=== PATIENT | female | born 1975 | race Caucasian/White ===

== ENCOUNTER 2020-12-06 09:45 | Emergency (ER) | payer OTHER, SELFPAY ==
[2020-12-06 09:57] VITALS: BP 144/77; PULSE 88; RESP 16; TEMP 37; O2SAT 97
--- NOTE | 2020-12-06 10:04 | ED.NAVMDI ---
HPI - Nausea/Vomiting/Diarrhea General Chief complaint: Upper Respiratory Infection Stated complaint: Nausea/Vomiting Time Seen by Provider: 12/06/20 10:05 Source: patient and RN notes reviewed Mode of arrival: ambulatory Limitations: no limitations History of Present Illness HPI Narrative: 45-year-old female with history of COPD presents with multiple concerns. She reports 2-day history of vomiting and diarrhea, with occasional episodes of vomiting and diarrhea. She also reports increased cough, wheezing. Reports she is out of her maintenance inhaler as well as her rescue inhaler. She denies shortness of breath, fever, body aches, chills. Reports sweats. MD elicited complaint: vomiting and other (cough) Related Data Home Medications Medication Instructions Recorded Confirmed albuterol sulfate 2 puff INHALATION Q4-6H PRN 12/06/20 12/06/20 Allergies Allergy/AdvReac Type Severity Reaction Status Date / Time No Known Allergies Allergy Verified 12/06/20 10:04 Review of Systems Review of Systems: CONSTITUTIONAL: Denies malaise, chills, or fever. Reports sweats EYES: Denies visual changes, redness, or discharge. ENT: Reports rhinorrhea, congestion. Denies sinus pain, otalgia or sore throat. CARDIOVASCULAR: Denies chest pain, palpitations, or edema. RESPIRATORY: Reports cough, wheezing. Denies dyspnea. GASTROINTESTINAL: Denies abdominal pain, bloody, or mucous stools. Reports nausea, vomiting, diarrhea MUSCULOSKELETAL: Denies myalgia. All systems reviewed & are unremarkable except as noted in HPI and below PMFSH Comments At time of signature, agree with nursing past medical, surgical, social and family history. There is no relevant family history pertinent to the presenting complaint Exam Narrative: GENERAL: Well-appearing, well-nourished, and in no acute distress. HEAD: Normocephalic EYES: PERRLA, sclera clear ENT: Nares clear. Mucous membranes moist. TM pearly palma with sharp light reflex bilaterally; no tragal tenderness. Oropharynx without erythema or lesions. Tonsils not enlarged and without exudate. NECK: Supple. CHEST: No respiratory distress. Scattered wheeze throughout. Aeration good. No bony deformities, no asymmetry. Speaks in full sentences. HEART: Regular rate and rhythm. SKIN: Warm, dry, no visible rash. NEURO: Alert and oriented x3. PSYCH: Normal mood and affect Course Course Emergency Course: Patient is aware of diagnosis, understands and agrees to treatment plan. Anticipatory guidance given. Patient agrees to follow-up as directed and is aware of reasons to seek care at the emergency department. Portions of this record may have been created with voice recognition software Vital Signs Vital signs: Reviewed. MDM - Nausea/Vomiting/Diarrhea MDM Narrative Medical decision making narrative: Exam findings show no acute concerns or changes; patient is non-toxic appearing and is in no distress. Patient is appropriate for outpatient treatment and follow-up. Critical Care Time Critical Care Time Critical Care Time: No Discharge Plan Discharge Clinical Impression: Acute exacerbation of chronic obstructive pulmonary disease, Medication refill Patient Disposition: Home, Self-Care Condition: Stable Instructions: Chronic Lung Disease and Infection Prevention (ED) Additional Instructions: Take medications as directed Recommend antihistamine such as Benadryl at night time and Zyrtec or Margarette during the day Use inhaler as needed for cough, wheezing, shortness of breath or chest tightness. Also, recommend symptomatic treatment includes: rest, fluids, and increase humidity of the air at home. Recommend Acetaminophen as directed on the bottle to reduce fever, pain, headache. Avoid smoking/second-hand smoke. Please schedule a follow-up visit with your personal physician for further evaluation and treatment within 3-5days. Including recheck and discussion of your blood pressure. If your symptoms pers
[2020-12-06 10:10] VITALS: BP 144/77; PULSE 88; RESP 16; TEMP 37; O2SAT 97
== END 2020-12-06 10:20 | disposition home or self-care (01) ==
PROVIDERS: Emergency Provider Nurse Practitioner; PCP Family Medicine
DX: J44.1 Chronic obstructive pulmonary disease with (acute) exacerbation (principal)
CPT/HCPCS: 99213; G0463

== ENCOUNTER 2021-03-06 16:38 | Emergency (ER) | payer OTHER, SELFPAY ==
[2021-03-06 16:44] VITALS: BP 145/77; PULSE 96; RESP 18; TEMP 37.1; O2SAT 97
--- NOTE | 2021-03-06 16:45 | ED.URI ---
HPI - URI/Sore Throat General Chief Complaint: Upper Respiratory Infection Stated Complaint: sore throat Time Seen by Provider: 03/06/21 16:46 Source: patient and RN notes reviewed History of Present Illness HPI Narrative: Patient is a 46-year-old female presents the urgent care with complaints of a sore throat and left ear pain. Patient states it started 2 to 3 days ago. Patient states she has been treated currently with nystatin for oral thrush. Patient states that it was severe on the roof of her mouth and has started to clear up slowly. Patient states that she takes inhaled corticosteroids for her COPD. Patient has been taking ibuprofen for her symptoms. No other acute complaints or upper respiratory. No acute distress noted. Patient aware of plan of care. Some parts of this dictation were generated by voice recognition software and may contain typographical and/or grammatical inaccuracies. Related Data Home Medications Medication Instructions Recorded Confirmed albuterol sulfate 2 puff INHALATION Q4-6H PRN 12/06/20 03/06/21 bupropion HCl 150 mg PO DAILY 03/06/21 03/06/21 buspirone 15 mg PO TID 03/06/21 03/06/21 nystatin 1,000 unit PO QID 03/06/21 03/06/21 Allergies Allergy/AdvReac Type Severity Reaction Status Date / Time No Known Allergies Allergy Verified 12/06/20 10:04 Review of Systems Review of Systems: CONSTITUTIONAL: Denies fever, chills, or sweats. EYES: Denies visual changes, redness, or discharge. ENT: Reports of left otalgia and sore throat with oral thrush CARDIOVASCULAR: Denies chest pain, palpitations, or edema. RESPIRATORY: Reports of chronic cough without dyspnea GASTROINTESTINAL: Denies abdominal pain, nausea, vomiting, or diarrhea. GENITOURINARY: Denies dysuria or hematuria. SKIN: Denies rash or itching. MUSCULOSKELETAL: Denies back pain, joint pain, or myalgia. NEUROLOGIC: Denies headache, numbness, or weakness. All other systems reviewed are negative, except as documented in HPI. PMFSH Comments At the time of my signature, I reviewed and agree with the nursing past medical, surgical, social, and family history. There is no relevant family history pertinent to the patient complaint. Exam Narrative: GENERAL: This is a well-nourished, well-developed patient, in no apparent distress. HEAD: normocephalic, atraumatic. EYES: PERRL. Sclera clear/white. Vision is grossly intact. EARS: External ears normal, auditory canals clear and without drainage, TMs normal without perforation. Hearing grossly intact. NOSE: External nose normal with no obvious nasal discharge, nares without redness, no rhinorrhea. THROAT: Mucous membranes moist. Moderate erythema noted posterior oropharynx with mild bilateral tonsillar edema without exudate. Notable thrush covering the surface of the tongue NECK: Neck supple, non-tender without lymphadenopathy CARDIOVASCULAR: Regular rate and rhythm without murmurs, gallops, or rubs. RESPIRATORY: Expiratory wheezes throughout SKIN: warm, intact with no suspicious lesions or rash, good texture and turgor. NEURO: awake, alert, and oriented to person, place and time. There were no obvious focal neurologic abnormalities. EXTREMITIES: No clubbing, cyanosis, or edema. Course Course Level of Care: Express Care Visit Vital Signs Vital signs: Vital Signs Temperature 98.8 F 03/06/21 16:44 Pulse Rate 96 03/06/21 16:44 Respiratory Rate 18 03/06/21 16:44 Blood Pressure 145/77 H 03/06/21 16:44 Pulse Oximetry 97 03/06/21 16:44 Temperature 98.8 F 03/06/21 16:44 Pulse Rate 96 03/06/21 16:44 Respiratory Rate 18 03/06/21 16:44 Blood Pressure 145/77 H 03/06/21 16:44 Pulse Oximetry 97 03/06/21 16:44 Reviewed?patient is informed that they may have pre-hypertension or hypertension based on a blood pressure reading in the department. I recommend the patient call the primary care provider listed on their discharge instructions or a physician of their choice this week t
== END 2021-03-06 17:09 | disposition home or self-care (01) ==
PROVIDERS: Emergency Provider Nurse Practitioner Family
DX: H92.02 Otalgia, left ear (principal); J02.9 Acute pharyngitis, unspecified; J44.9 Chronic obstructive pulmonary disease, unspecified; F41.9 Anxiety disorder, unspecified; F32.A Depression, unspecified
CPT/HCPCS: 87081; 99213; G0463

== ENCOUNTER 2021-04-02 15:10 | Emergency (ER) | payer OTHER, SELFPAY ==
[2021-04-02 15:16] VITALS: BP 142/88; PULSE 95; RESP 14; TEMP 36.7; O2SAT 98
--- NOTE | 2021-04-02 15:31 | ED.GENADULT ---
HPI - General Adult General Chief complaint: Extremity Injury, Lower Stated complaint: right knee swollen Time Seen by Provider: 04/02/21 15:31 Source: patient, RN notes reviewed and old records reviewed Mode of arrival: ambulatory History of Present Illness HPI narrative: 46-year-old female presents with complaints of wheezing right wrist pain and right knee pain. Reports taking controller inhaler twice daily as ordered. Has been using albuterol without spacer 1-3 times daily, for increased shortness of breath. Reminded patient she had albuterol inhaler filled last month. Patient reports that she and mom both use albuterol inhaler. Admits she and mom may have both been using same inhaler. Goes outside to smoke. Reports fell on right wrist 9 months ago has taken naproxen off and on. Reports swelling in right wrist and feels tight with increased usage. Fell on right knee 3 months ago. Right knee feels stiff painful with bending and rising to standing position. Denies fever muscle aches or chills. Related Data Home Medications Medication Instructions Recorded Confirmed albuterol 90 mcg INHALATION Q6H PRN 04/02/21 04/02/21 bupropion HCl 150 mg PO QAM 04/02/21 04/02/21 buspirone 15 mg PO BID 04/02/21 04/02/21 fluticasone propion-salmeterol 1 inh INHALATION Q12H 04/02/21 04/02/21 [Wixela Inhub] multivitamin [Daily Vitamin] 1 tablet PO DAILY 04/02/21 04/02/21 quetiapine 25 mg PO HS 04/02/21 04/02/21 Allergies Allergy/AdvReac Type Severity Reaction Status Date / Time No Known Allergies Allergy Verified 04/02/21 15:29 Review of Systems Review of Systems: CONSTITUTIONAL: Denies fever, chills, or sweats. EYES: Denies visual changes, redness, or discharge. ENT: Denies rhinorrhea, congestion, sore throat, or otalgia. CARDIOVASCULAR: Denies chest pain, palpitations, or edema. RESPIRATORY: Occasional cough. Chest tightness at times. Using albuterol inhaler 1-3 times daily. GASTROINTESTINAL: Denies abdominal pain, nausea, vomiting, or diarrhea. GENITOURINARY: Denies dysuria or hematuria. SKIN: Denies rash or itching. MUSCULOSKELETAL: Denies back pain. Right wrist and knee pain, worse with movement.. Increased pain with movement. NEUROLOGIC: Denies headache, numbness, or weakness. PSYCHIATRIC: Denies anxiety or depression. All other systems reviewed are negative, except as documented in HPI. PMFSH Comments At the time of my signature, I reviewed and agree with the nursing past medical, surgical, social, and family history. There is no relevant family history pertinent to the patient complaint. Exam Narrative: GENERAL: This is a well-nourished, well-developed female, in no apparent distress. Uncomfortable due to right knee pain. HEAD: normocephalic, atraumatic. EYES: Sclera clear/white. Vision is grossly intact. EARS: External ears normal, auditory canals clear and without drainage, NOSE: External nose normal with no obvious nasal discharge, nares without redness, no rhinorrhea. THROAT: Mucous membranes moist. NECK: Neck supple, full range of motion CARDIOVASCULAR: Regular rate and rhythm without murmurs, gallops, or rubs. RESPIRATORY: Scattered wheezing anterior and posterior with exhalation. Breath sounds equal bilaterally. Decreased air movement. GASTROINTESTINAL: Abdomen soft, non-tender, nondistended. SKIN: [place] warm, Dry, intact with no suspicious lesions or rash, good texture and turgor. NEURO: awake, alert, and oriented to person, place and time. There were no obvious focal neurologic abnormalities. Gait within normal limits. EXTREMITIES: Bilateral handgrips has normal strength and sensation, normal range of motion. No edema or ecchymosis. 5/5 strength with wrist flexion and extension. Normal sensation with sensitivity to light touch and pain. Right dorsal wrist tenderness with palpation. No open wounds, no skin tenting, no devitalized tissue or atrophy, no trophic changes, no obvious deformity, alignment normal, ne
[2021-04-02 15:34] VITALS: BP 142/88; PULSE 95; RESP 14; TEMP 36.7; O2SAT 98
== END 2021-04-02 16:21 | disposition home or self-care (01) ==
PROVIDERS: Emergency Provider Nurse Practitioner Family
DX: M25.531 Pain in right wrist (principal); M25.561 Pain in right knee; J45.909 Unspecified asthma, uncomplicated; J44.9 Chronic obstructive pulmonary disease, unspecified; F31.9 Bipolar disorder, unspecified
CPT/HCPCS: 99203; G0463

== ENCOUNTER 2021-11-24 10:25 | Emergency (ER) | payer OTHER, SELFPAY ==
[2021-11-24 10:35] VITALS: BP 148/84; PULSE 84; RESP 18; TEMP 36; O2SAT 97
--- NOTE | 2021-11-24 11:20 | ED.GENADULT ---
HPI - General Adult General Chief complaint: Dental/Oral Stated complaint: Sore throat and sore on tongue Time Seen by Provider: 11/24/21 11:20 History of Present Illness HPI narrative: 46-year-old female presented for complaint of lesion to the right side of tongue, swollen lymph nodes, and sore throat for a few days. She endorses pain with swallowing and eating. She reports she had a bump on the tongue and she sterilized toenail clippers and clipped the tip off of the bump. She states it continues to be painful. She has not taken anything for pain. She endorses a history of genital HSV and is concerned for oral HSV. Related Data Home Medications Medication Instructions Recorded Confirmed albuterol sulfate 90 mcg/actuation 2 puff inhalation Q4-6H PRN 12/06/20 03/06/21 aerosol inhaler Shortness Of Breath Or Wheezing bupropion HCl 150 mg 24 hr tablet, 150 mg PO DAILY 03/06/21 03/06/21 extended release buspirone 15 mg tablet 15 mg PO TID 03/06/21 03/06/21 nystatin 100,000 unit/mL oral 1,000 unit PO QID 03/06/21 03/06/21 suspension albuterol 90 mcg/actuation aerosol 90 mcg inhalation Q6H PRN Dyspnea 04/02/21 04/02/21 inhaler bupropion HCl 150 mg 24 hr tablet, 150 mg PO QAM 04/02/21 04/02/21 extended release buspirone 15 mg tablet 15 mg PO BID 04/02/21 04/02/21 fluticasone 250 mcg-salmeterol 50 1 inh inhalation Q12H 04/02/21 04/02/21 mcg/dose blistr powdr for inhalation (Wixela Inhub) multivitamin 1 tablet PO DAILY 04/02/21 04/02/21 quetiapine 25 mg tablet 25 mg PO HS 04/02/21 04/02/21 Allergies Allergy/AdvReac Type Severity Reaction Status Date / Time No Known Allergies Allergy Verified 11/24/21 11:18 Review of Systems Review of Systems: CONSTITUTIONAL: Denies body aches, fever, chills, or sweats. EYES: Denies visual changes, redness, or discharge. ENT: reports tongue and throat pain; Denies rhinorrhea, congestion, or otalgia. CARDIOVASCULAR: Denies chest pain, palpitations, or edema. RESPIRATORY: Denies dyspnea. GASTROINTESTINAL: Denies abdominal pain, nausea, vomiting, or diarrhea. SKIN: Denies rash, itching, or wounds. MUSCULOSKELETAL: Denies back pain, joint pain, or myalgia. NEUROLOGIC: Denies headache Exam Narrative: GENERAL: well-appearing EYES: conjunctivae clear ENT: Mucous membranes moist. Approx 3mm ulcerated lesion to right tongue, no bleeding; TM pearly palma with normal light reflex bilaterally; no tragal tenderness. Oropharynx erythematous without lesions. Tonsils enlarged and without exudate. No drooling, no hoarseness, no trismus, uvula midline. No tripod positioning, hot potato voice, or soft palate swelling. NECK: Supple. bilateral submandibular lymphadenopathy CHEST: Clear to auscultation, breath sounds equal. No respiratory distress, speaks in full sentences. HEART: Regular rate and rhythm. No murmur heard. SKIN: Warm, dry, no rash. NEURO: Alert and oriented x3. Course Course Emergency Course: Patient is aware of diagnosis, understands and agrees to treatment plan. Anticipatory guidance given. Patient agrees to follow-up as directed and is aware of reasons to seek care at the emergency department. Portions of this record may have been created with voice recognition software Level of Care: Express Care Visit Vital Signs Vital signs: Vital Signs Temperature 96.8 F L 11/24/21 10:35 Pulse Rate 84 11/24/21 10:35 Respiratory Rate 18 11/24/21 10:35 Blood Pressure 148/84 H 11/24/21 10:35 Pulse Oximetry 97 11/24/21 10:35 Oxygen Delivery Room Air 11/24/21 10:35 Temperature 96.8 F L 11/24/21 10:35 Pulse Rate 84 11/24/21 10:35 Respiratory Rate 18 11/24/21 10:35 Blood Pressure 148/84 H 11/24/21 10:35 Pulse Oximetry 97 11/24/21 10:35 Oxygen Delivery Room Air 11/24/21 10:35 Medical Decision Making MDM Narrative Medical decision making narrative: Strep negative. Given hx HSV, will treat for oral outbreak. Reviewed with nova
== END 2021-11-24 12:11 | disposition home or self-care (01) ==
PROVIDERS: Emergency Provider Nurse Practitioner Family; PCP Internal Medicine
DX: K14.9 Disease of tongue, unspecified (principal)
CPT/HCPCS: 87081; 87880; 99213; G0463

== ENCOUNTER 2022-01-10 18:12 | Emergency (ER) | payer OTHER, SELFPAY ==
--- NOTE | 2022-01-10 18:13 | ED.URI ---
HPI - URI/Sore Throat General Chief Complaint: Upper Respiratory Infection Stated Complaint: cough Time Seen by Provider: 01/10/22 18:13 Source: patient and RN notes reviewed History of Present Illness HPI Narrative: patient is a 46-year-old female who presents to urgent care with complaints of cough for 2 days. Patient was in the emergency room on the 02 of January and given albuterol treatments for exacerbation of COPD and asthma. Patient states that she was not placed on steroids at that time. Patient has not followed up with her doctor. Patient is also requesting refills of her inhalers. No other acute complaints. Denies any fevers or chest pain. No acute distress noted. Patient aware of the plan care. Some parts of this dictation were generated by voice recognition software and may contain typographical and/or grammatical inaccuracies. Related Data Home Medications Medication Instructions Recorded Confirmed bupropion HCl 150 mg 24 hr tablet, 150 mg PO DAILY 03/06/21 01/10/22 extended release buspirone 15 mg tablet 15 mg PO TID 03/06/21 01/10/22 albuterol 90 mcg/actuation aerosol 90 mcg inhalation Q6H PRN Dyspnea 04/02/21 01/10/22 inhaler multivitamin 1 tablet PO DAILY 04/02/21 01/10/22 quetiapine 25 mg tablet 25 mg PO HS 04/02/21 01/10/22 Allergies Allergy/AdvReac Type Severity Reaction Status Date / Time No Known Allergies Allergy Verified 01/10/22 18:20 Review of Systems Review of Systems: CONSTITUTIONAL: Denies fever, chills, or sweats. EYES: Denies visual changes, redness, or discharge. ENT: Denies rhinorrhea, congestion, sore throat, or otalgia. CARDIOVASCULAR: Denies chest pain, palpitations, or edema. RESPIRATORY: Reports persistent cough dyspnea GASTROINTESTINAL: Denies abdominal pain, nausea, vomiting, or diarrhea. GENITOURINARY: Denies dysuria or hematuria. SKIN: Denies rash or itching. MUSCULOSKELETAL: Denies back pain, joint pain, or myalgia. NEUROLOGIC: Denies headache, numbness, or weakness. All other systems reviewed are negative, except as documented in HPI. PMFSH Comments At the time of my signature, I reviewed and agree with the nursing past medical, surgical, social, and family history. There is no relevant family history pertinent to the patient complaint. Exam Narrative: GENERAL: This is a well-nourished, well-developed patient, in no apparent distress. HEAD: normocephalic, atraumatic. EYES: PERRL. Sclera clear/white. Vision is grossly intact. EARS: External ears normal, auditory canals clear and without drainage, TMs normal without perforation. Hearing grossly intact. NOSE: External nose normal with no obvious nasal discharge, nares without redness, no rhinorrhea. THROAT: Mucous membranes moist, posterior pharynx clear. moderate postnasal drainage NECK: Neck supple, non-tender without lymphadenopathy CARDIOVASCULAR: Regular rate and rhythm without murmurs, gallops, or rubs. RESPIRATORY: inspiratory expiratory wheezes throughout SKIN: warm, intact with no suspicious lesions or rash, good texture and turgor. NEURO: awake, alert, and oriented to person, place and time. There were no obvious focal neurologic abnormalities. EXTREMITIES: No clubbing, cyanosis, or edema. Course Course Level of Care: Express Care Visit Vital Signs Vital signs: Vital Signs Temperature 97.5 F L 01/10/22 18:16 Pulse Rate 99 01/10/22 18:16 Respiratory Rate 20 01/10/22 18:16 Blood Pressure 113/79 01/10/22 18:16 Pulse Oximetry 98 01/10/22 18:16 Oxygen Delivery Room Air 01/10/22 18:16 Temperature 97.5 F L 01/10/22 18:22 Pulse Rate 99 01/10/22 18:22 Respiratory Rate 20 01/10/22 18:22 Blood Pressure 113/79 01/10/22 18:22 Pulse Oximetry 98 01/10/22 18:22 Oxygen Delivery Room Air 01/10/22 18:22 reviewed MDM - URI/Sore Throat MDM Narrative Medical decision making narrative: advised patient to complete the oral steroid regimen as prescribed.
[2022-01-10 18:16] VITALS: BP 113/79; PULSE 99; RESP 20; TEMP 36.4; O2SAT 98
[2022-01-10 18:22] VITALS: BP 113/79; PULSE 99; RESP 20; TEMP 36.4; O2SAT 98
== END 2022-01-10 18:34 | disposition home or self-care (01) ==
PROVIDERS: Emergency Provider Nurse Practitioner Family; PCP Internal Medicine
DX: J40 Bronchitis, not specified as acute or chronic (principal); J44.9 Chronic obstructive pulmonary disease, unspecified; F31.9 Bipolar disorder, unspecified
CPT/HCPCS: 99213; G0463

== ENCOUNTER 2022-01-19 09:59 | Emergency (ER) | payer OTHER, SELFPAY ==
--- NOTE | 2022-01-19 10:01 | ED.URI ---
HPI - URI/Sore Throat General Chief Complaint: Upper Respiratory Infection Stated Complaint: respiratory and ears Time Seen by Provider: 01/19/22 10:16 Source: patient and RN notes reviewed Mode of arrival: ambulatory Limitations: no limitations History of Present Illness HPI Narrative: 46-year-old female presents concern for worsening cough, yellow productive phlegm, left ear pain. She reports she was seen a week ago and she took steroids and has been using ear drops. Reports she has been using her inhaler and nebulizer at home. She reports malaise, chills, aches. She denies taking any [id number] cold medications. MD elicited complaint: cough and other (Ear pain) Related Data Home Medications Medication Instructions Recorded Confirmed bupropion HCl 150 mg 24 hr tablet, 150 mg PO DAILY 03/06/21 01/10/22 extended release buspirone 15 mg tablet 15 mg PO TID 03/06/21 01/10/22 albuterol 90 mcg/actuation aerosol 90 mcg inhalation Q6H PRN Dyspnea 04/02/21 01/10/22 inhaler multivitamin 1 tablet PO DAILY 04/02/21 01/10/22 quetiapine 25 mg tablet 25 mg PO HS 04/02/21 01/10/22 Allergies Allergy/AdvReac Type Severity Reaction Status Date / Time No Known Allergies Allergy Verified 01/10/22 18:20 Review of Systems Review of Systems: CONSTITUTIONAL: Reports malaise, chills EYES: Denies visual changes, redness, or discharge. ENT: Reports rhinorrhea, congestion, left otalgia CARDIOVASCULAR: Denies chest pain, palpitations, or edema. RESPIRATORY: Reports persistent productive cough, exertional dyspnea. GASTROINTESTINAL: Denies abdominal pain, nausea, vomiting, diarrhea SKIN: Denies rash or itching. MUSCULOSKELETAL: Reports myalgia. NEUROLOGIC: Denies headache. All systems reviewed & are unremarkable except as noted in HPI and below PMFSH Comments At time of signature, agree with nursing past medical, surgical, social and family history. There is no relevant family history pertinent to the presenting complaint Exam Narrative: GENERAL: Nontoxic appearing. And in no acute distress. HEAD: Normocephalic EYES: PERRLA, conjunctivae clear ENT: Nares clear, turbinates edematous and erythematous, clear discharge. Mucous membranes moist. Right TM pearly palma with dull light reflex, left TM erythematous and bulging; no tragal tenderness. Oropharynx not erythematous without lesions. Tonsils not enlarged and without exudate, no drooling, no hoarseness, no trismus, uvula midline. NECK: Supple. No lymphadenopathy CHEST: Scattered inspiratory and expiratory wheeze, scattered rhonchi, breath sounds equal. No rales, or stridor. No respiratory distress, speaks in full sentences. HEART: Regular rate and rhythm. No murmur heard. SKIN: Warm, dry, no rash. NEURO: Alert and oriented x3. PSYCH: Normal mood and affect Course Course Emergency Course: Offered patient chest x-ray, she refused Patient is aware of diagnosis, understands and agrees to treatment plan. Anticipatory guidance given. Patient agrees to follow-up as directed and is aware of reasons to seek care at the emergency department. Portions of this record may have been created with voice recognition software Level of Care: Express Care Visit Vital Signs Vital signs: Vital Signs Temperature 97.4 F L 01/19/22 10:04 Pulse Rate 110 H 01/19/22 10:04 Respiratory Rate 20 01/19/22 10:04 Blood Pressure 131/84 01/19/22 10:04 Pulse Oximetry 92 01/19/22 10:04 Oxygen Delivery Room Air 01/19/22 10:04 Temperature 97.4 F L 01/19/22 10:04 Pulse Rate 110 H 01/19/22 10:04 Respiratory Rate 20 01/19/22 10:04 Blood Pressure 131/84 01/19/22 10:04 Pulse Oximetry 92 01/19/22 10:04 Oxygen Delivery Room Air 01/19/22 10:04 Reviewed. MDM - URI/Sore Throat MDM Narrative Medical decision making narrative: Differential diagnosis considered: Clement virus, strep pharyngitis, allergic rhinitis, upper respiratory tract infection, sinusitis, rhinosinusiti
[2022-01-19 10:04] VITALS: BP 131/84; PULSE 110; RESP 20; TEMP 36.3; O2SAT 92
== END 2022-01-19 10:36 | disposition home or self-care (01) ==
PROVIDERS: Emergency Provider Nurse Practitioner; PCP Internal Medicine
DX: H66.92 Otitis media, unspecified, left ear (principal); J06.9 Acute upper respiratory infection, unspecified; J44.9 Chronic obstructive pulmonary disease, unspecified
CPT/HCPCS: 99213; G0463

== ENCOUNTER 2022-01-30 17:52 | Emergency (ER) | payer OTHER, SELFPAY ==
--- NOTE | 2022-01-30 17:55 | ED.FEMALEGU ---
HPI - Female Genitourinary General Chief complaint: Urogenital-Female Stated complaint: Trichomoniasis Time Seen by Provider: 01/30/22 18:00 Source: patient, RN notes reviewed and old records reviewed Mode of arrival: ambulatory Limitations: no limitations History of Present Illness HPI Narrative: 46-year-old female presents to the [facility] with complaints vaginal discharge, itching and irritation. Reports that feels similar to when she had Trichomonas back and spring. Denies fevers, chest pain, abdominal pain. No CVA tenderness. Related Data Home Medications Medication Instructions Recorded Confirmed bupropion HCl 150 mg 24 hr tablet, 150 mg PO DAILY 03/06/21 01/30/22 extended release buspirone 15 mg tablet 15 mg PO TID 03/06/21 01/30/22 Allergies Allergy/AdvReac Type Severity Reaction Status Date / Time No Known Allergies Allergy Verified 01/30/22 18:15 Review of Systems Review of Systems: All systems reviewed & are unremarkable except as noted in HPI and below Constitutional: Constitutional: Reports no additional constitutional complaints Eyes: Eyes: Reports no additional eye complaints ENT: Reports system reviewed and no additional complaints, except as documented Cardiovascular: Cardiovascular: Reports no additional cardiovascular complaints, Denies chest pain and Denies dyspnea Respiratory: Respiratory: Reports no additional respiratory complaints, Denies chest congestion, Denies cough and Denies dyspnea Gastrointestinal: Gastrointestinal: Reports no additional gastrointestinal complaints, Denies abdominal pain, Denies nausea and Denies vomiting Genitourinary: Genitourinary: Reports as per HPI and Reports vaginal discharge Musculoskeletal: Musculoskeletal: Reports no additional musculoskeletal complaints Integumentary/Breasts: Skin/Breast: Reports system reviewed and no additional complaints, except as docu Neurologic: Reports system reviewed and no additional complaints, except as documented Psychiatric: Psychiatric: Reports no additional psychiatric complaints Allergic/Immunologic: Allergic/Immunologic: Reports no additional allergic/immunologic complaints PMFSH Comments At the time of my signature, I reviewed and agree with the nursing past medical, surgical, social, and family history. There is no relevant family history pertinent to the patient complaint. Exam Const: General: cooperative, healthy appearing, comfortable, no acute distress, well developed, alert and well nourished Nutritional Appearance: well nourished and obese Orientation/consciousness: patient oriented x3 Limitations: no limitations HENMT: Head: normal to inspection Ears: hearing grossly normal bilaterally and external ears normal Face/Nose/Sinus: Normal external nose present, Normal nares present, Normal nasal mucous membranes and turbinates present and normal facial exam Face and sinus: normal facial exam Mouth: Yes Normal oral and palatal mucosa present, Yes lip normal and Yes moist mucous membranes Throat: posterior oropharynx normal and uvula midline Eyes: General: appearance normal, both eyes and all related structures Alignment and Position: alignment normal Periorbital: periorbital findings normal Conjunctivae: conjunctivae normal Pupils: Equal, round and reactive pupils present EOM: EOMs intact bilaterally Neck: Neck: normal visual inspection, full ROM, no lymphadenopathy and no meningeal signs Chest: Chest palpation & inspection: normal inspection of the chest Resp: Effort & Inspection: normal respiratory effort and able to speak in complete sentences Auscultation: clear to auscultation bilaterally, no crackles, no rales, no rhonchi and no wheezes Cardio: Rate: regular rate Rhythm: regular rhythm : General: Yes no CVA tenderness External Female Exam: normal external appearance Speculum Exam - Vagina: abnormal vaginal discharge white, malodorous and yellow Speculum Exam - Cervix: normal appearan
[2022-01-30 18:18] VITALS: BP 140/93; PULSE 95; RESP 16; TEMP 36.8; O2SAT 98
--- NOTE | 2022-01-30 18:22 | PC.NURSE ---
Assisted GLOVE CUFFER with pelvic exam. Swabs collected.
== END 2022-01-30 18:36 | disposition home or self-care (01) ==
PROVIDERS: Emergency Provider Nurse Practitioner; PCP Internal Medicine
DX: B37.31 Acute candidiasis of vulva and vagina (principal); Z20.2 Contact with and (suspected) exposure to infections with a predominantly sexual mode of transmission
CPT/HCPCS: 87070; 87491; 87591; 87661; 99214; G0463

== ENCOUNTER 2022-08-05 10:58 | Emergency (ER) | payer OTHER, SELFPAY ==
--- NOTE | ~2022-08-05 | XR_ITS ---
EXAMINATION: XR abdomen obstructive series DATE: 08/05/2022 11:38 INDICATION: Generalized abdominal pain, constipation TECHNIQUE: Upright and supine views of the abdomen were obtained. COMPARISON: None. FINDINGS: A moderate volume of colonic stool is present. There are no dilated loops of bowel. Mild os teitis pubis is noted. The visualized lung bases are clear. IMPRESSION: 1. Constipation. Reviewed, dictated and finalized at location [] IMPRESSION: 1. Constipation.
[2022-08-05 11:06] VITALS: BP 140/83; PULSE 83; RESP 18; TEMP 36.8; O2SAT 100
--- NOTE | 2022-08-05 11:14 | ED.GENADULT ---
HPI - General Adult General Chief complaint: Abdominal Pain Stated complaint: stomach issues Time Seen by Provider: 08/05/22 11:14 Source: patient Mode of arrival: ambulatory Limitations: no limitations History of Present Illness HPI narrative: 47-year-old female presents with complaint of right sided abdominal pain for the past 1 year. Reports that pain is a ?burning? pain. Reports burning sensation has increased over the last 3 weeks. Feels a pressure in her abdomen when she bends over. Also reports intermittent constipation. No urinary symptoms. Denies nausea vomiting diarrhea. No blood in stool. Saw a promotion specialist for this complaint and states she had an ultrasound, may be a CT scan done. Has not called promotion specialist or her primary care physician for a appointment since pain worsened. Patient is well-appearing today. Patient reports history of bipolar disease. States she recently stopped her medications and is using marijuana to treat her symptoms. So requesting albuterol refill. All systems reviewed and negative except as noted above. Related Data Home Medications Medication Instructions Recorded Confirmed albuterol sulfate 90 mcg/actuation See Rx Instructions .Route .COMPLEX 08/05/22 08/05/22 aerosol inhaler fluticasone 500 mcg-salmeterol 50 See Rx Instructions .Route .COMPLEX 08/05/22 08/05/22 mcg/dose blistr powdr for inhalation (Advair Diskus) Allergies Allergy/AdvReac Type Severity Reaction Status Date / Time No Known Allergies Allergy Verified 08/05/22 11:06 Review of Systems Review of Systems: CONSTITUTIONAL: Denies fever, chills, or sweats. EYES: Denies visual changes, redness, or discharge. ENT: Denies rhinorrhea, congestion, sore throat, or otalgia. CARDIOVASCULAR: Denies chest pain, palpitations, or edema. RESPIRATORY: Denies cough or dyspnea. GASTROINTESTINAL: Reports right-sided burning abdominal pain. Denies nausea, vomiting, or diarrhea. GENITOURINARY: Denies dysuria or hematuria. SKIN: Denies rash or itching. MUSCULOSKELETAL: Denies back pain, joint pain, or myalgia. NEUROLOGIC: Denies headache, numbness, or weakness. PSYCHIATRIC: Denies anxiety or depression. All other systems reviewed are negative, except as documented in HPI. [facility] Comments At time of signature, agree with nursing past medical, surgical, social and family history. There is no relevant family history pertinent to the presenting complaint. Exam Narrative: GENERAL: This is a well-nourished, well-developed patient, in no apparent distress. HEAD: normocephalic, atraumatic. EYES: PERRL. Sclera clear/white. Vision is grossly intact. EARS: External ears normal NOSE: External nose normal NECK: Neck supple, non-tender without lymphadenopathy, masses or thyromegaly. CARDIOVASCULAR: Regular rate and rhythm without murmurs, gallops, or rubs. RESPIRATORY: Clear to auscultation. Breath sounds equal bilaterally. No wheezes, rales, or rhonchi. GASTROINTESTINAL: Abdomen soft, non-tender, nondistended. Bowel sounds are active. No hepato-splenomegaly, or palpable masses. No guarding. SKIN: warm, Dry, intact with no suspicious lesions or rash, good texture and turgor. NEURO: awake, alert, and oriented to person, place and time. There were no obvious focal neurologic abnormalities. EXTREMITIES: No joint tenderness, effusion, or edema noted. Course Course Level of Care: Express Care Visit Vital Signs Vital signs: Vital Signs Temperature 36.8 C 08/05/22 11:06 Pulse Rate 83 08/05/22 11:06 Respiratory Rate 18 08/05/22 11:06 Blood Pressure 140/83 08/05/22 11:06 Pulse Oximetry 100 08/05/22 11:06 Oxygen Delivery Room Air 08/05/22 11:06 Temperature 36.8 C 08/05/22 11:06 Pulse Rate 83 08/05/22 11:06 Respiratory Rate 18 08/05/22 11:06 Blood Pressure 140/83 08/05/22 11:06 Pulse Oximetry 100 08/05/22 11:06 Oxygen Delivery Room Air 08/05/22 11:06 Reviewed
[2022-08-05 11:17] VITALS: BP 140/83; PULSE 83; RESP 18; TEMP 36.8; O2SAT 100
== END 2022-08-05 12:00 | disposition home or self-care (01) ==
PROVIDERS: Emergency Provider Nurse Practitioner Family; PCP Internal Medicine
DX: K59.00 Constipation, unspecified (principal); Z76.0 Encounter for issue of repeat prescription; J44.9 Chronic obstructive pulmonary disease, unspecified
CPT/HCPCS: 74019; 99213; G0463

== ENCOUNTER 2023-10-01 10:12 | Emergency (ER) | payer OTHER, SELFPAY ==
[2023-10-01 10:17] VITALS: BP 157/93; PULSE 83; RESP 24; TEMP 36.6; O2SAT 97
--- NOTE | 2023-10-01 10:42 | ED.URI ---
HPI - URI/Sore Throat General Chief Complaint: Upper Respiratory Infection Stated Complaint: has COPD/cough/throat Time Seen by Provider: 10/01/23 10:43 Source: patient and RN notes reviewed Mode of arrival: ambulatory Limitations: no limitations History of Present Illness HPI Narrative: 48-year-old female presents with concern of for cough, shortness of breath 1.5 weeks ago. She reports she is using her albuterol inhaler and used a nebulizer without relief. She reports Ventolin works better for her but she can not afford the prescription. She denies fever, aches, chills, sweats MD elicited complaint: cough Related Data Home Medications Medication Instructions Recorded Confirmed fluticasone 500 mcg-salmeterol 50 See Rx Instructions .Route .COMPLEX 08/05/22 10/01/23 mcg/dose blistr powdr for inhalation (Advair Diskus) cetirizine 10 mg tablet (All Day mg 10/01/23 Allergy (cetirizine)) fluticasone propionate 50 intranasal 10/01/23 10/01/23 mcg/actuation nasal spray,suspension Allergies Allergy/AdvReac Type Severity Reaction Status Date / Time No Known Allergies Allergy Verified 10/01/23 10:16 Review of Systems Review of Systems: CONSTITUTIONAL: Reports malaise. Denies chills, sweats, or fever. EYES: Denies visual changes, redness, or discharge. ENT: Reports rhinorrhea, congestion, and sore throat. CARDIOVASCULAR: Denies chest pain, palpitations, or edema. RESPIRATORY: Reports cough, dyspnea. GASTROINTESTINAL: Denies abdominal pain, nausea, vomiting, diarrhea SKIN: Denies rash or itching. MUSCULOSKELETAL: Denies myalgia. NEUROLOGIC: Denies headache. All systems reviewed & are unremarkable except as noted in HPI and below PMFSH Comments At time of signature, agree with nursing past medical, surgical, social and family history. There is no relevant family history pertinent to the presenting complaint Exam Narrative: GENERAL: Well-appearing, well-nourished, and in no acute distress. HEAD: Normocephalic EYES: PERRLA, conjunctivae clear ENT: Nares clear. Mucous membranes moist. TM pearly palma with sharp light reflex bilaterally; no tragal tenderness. Oropharynx erythematous without lesions. Tonsils not enlarged and without exudate, no drooling, no hoarseness, no trismus, uvula midline. NECK: Supple. No lymphadenopathy CHEST: Inspiratory and expiratory wheeze throughout, scattered rhonchi. No rales, or stridor. No respiratory distress, speaks in full sentences. HEART: Regular rate and rhythm. No murmur heard. SKIN: Warm, dry, no rash. NEURO: Alert and oriented x3. PSYCH: Normal mood and affect Course Course Emergency Course: Patient is aware of diagnosis, understands and agrees to treatment plan. Anticipatory guidance given. Patient agrees to follow-up as directed and is aware of reasons to seek care at the emergency department. Portions of this record may have been created with voice recognition software Level of Care: Express Care Visit Reevaluation(s) Reevaluation #1: Slight improvement in aeration upon re-evaluation, some rhonchi noted Date: 10/01/23 Time: 11:26 Vital Signs Vital signs: Vital Signs Temperature 97.9 F 10/01/23 10:17 Pulse Rate 83 10/01/23 10:17 Respiratory Rate 24 H 10/01/23 10:17 Blood Pressure 157/93 H 10/01/23 10:17 Pulse Oximetry 97 10/01/23 10:17 Oxygen Delivery Room Air 10/01/23 10:17 Temperature 97.9 F 10/01/23 10:17 Pulse Rate 83 10/01/23 10:17 Respiratory Rate 24 H 10/01/23 10:17 Blood Pressure 157/93 H 10/01/23 10:17 Pulse Oximetry 97 10/01/23 10:17 Oxygen Delivery Room Air 10/01/23 10:17 Reviewed. MDM - URI/Sore Throat MDM Narrative Medical decision making narrative: Differential diagnosis considered: Clement virus, strep pharyngitis, allergic rhinitis, upper respiratory tract infection, sinusitis, rhinosinusitis, nasopharyngitis. viral pharyngitis, otitis media, otitis externa, pneumonia, bronchitis,
[2023-10-01 10:46] LABS: EDSTREPNEGPOS1 Negative
[2023-10-01] MEDS: IPRATROPIUM 0.5 MG/ALBUTEROL SULFATE 2.5 MG AMPUL.NEB 3 ML INHALATION (10:54)
[2023-10-01] MEDS: methylPREDNISolone SOD SUCC 125 MG VIAL IM (10:54)
[2023-10-01 11:25] VITALS: PULSE 80; RESP 20; O2SAT 97
== END 2023-10-01 11:30 | disposition home or self-care (01) ==
PROVIDERS: Emergency Provider Nurse Practitioner; PCP Family Medicine
DX: J44.1 Chronic obstructive pulmonary disease with (acute) exacerbation (principal); Z20.822 Contact with and (suspected) exposure to COVID-19
CPT/HCPCS: 87081; 87426; 87880; 96372; 99213; G0463; J2919

== ENCOUNTER 2024-01-13 17:18 | Emergency (ER) | payer OTHER, SELFPAY ==
[2024-01-13 17:26] VITALS: BP 142/95; PULSE 92; RESP 20; TEMP 36.8; O2SAT 98
[2024-01-13 18:08] LABS: EDSTREPNEGPOS1 Negative (Negative)
--- NOTE | 2024-01-13 18:20 | ED_ITS ---
HPI - URI/Sore Throat General Chief Complaint: Upper Respiratory Infection Stated Complaint: throat Time Seen by Provider: 01/13/24 18:10 Source: patient Mode of arrival: ambulatory Limitations: no limitations History of Present Illness HPI Narrative: 48 year old female presents to [facility] care with complaints of 4-5 day history of sore throat with right lymph node painful and swollen with pain with swallowing voiced.Patient reports that she has some cough noted, does have history of COPD and asthma and is out of her inhalers of Advair and Albuterol. Patient reports that she has noticed hoarseness and voice changes and has had some headache discomfort. Patient states that she has taken Tylenol for her discomfort. Patient continues to smoke cigarettes daily MD elicited complaint: cough, sore throat and other (tobacco abuse) Pertinent past history: COPD and asthma Onset (ago): day(s) (4-5 days) Severity: moderate Able to tolerate fluids by mouth: Yes Treatments prior to arrival: acetaminophen Related Data Home Medications Medication Instructions Recorded Confirmed fluticasone 500 mcg-salmeterol 50 See Rx Instructions .Route .COMPLEX 08/05/22 01/13/24 mcg/dose blistr powdr for inhalation (Advair Diskus) Allergies Allergy/AdvReac Type Severity Reaction Status Date / Time No Known Allergies Allergy Verified 10/01/23 10:16 Review of Systems Review of Systems: CONSTITUTIONAL:Reports malaise, no chills, sweats, or fever. EYES: Denies visual changes, redness, or discharge. ENT: Reports rhinorrhea, congestion, no sinus pain, no otalgia and positive for sore throat. CARDIOVASCULAR: Denies chest pain, palpitations, or edema. RESPIRATORY: Reports cough.? Denies acute dyspnea. GASTROINTESTINAL: Denies abdominal pain, nausea, vomiting, diarrhea SKIN: Denies rash or itching. MUSCULOSKELETAL: Denies myalgia. NEUROLOGIC:Reports some headache. All systems reviewed & are unremarkable except as noted in HPI and below PMFSH Past Medical History Medical History (Updated 01/14/24 @ 16:30 by Bianca Du NP) Asthma Bipolar disorder COPD (chronic obstructive pulmonary disease) Fracture of right wrist Genital herpes Surgical History Surgical History Previous section Social History Social History (Updated 01/14/24 @ 16:28 by Bianca Du NP) Smoking packs per day: 0.5 Smoking cigarettes per day: 10.0 Years smoked: 25 Smoking pack-years: 12.50 Smoking status: Current every day smoker Tobacco type: cigarettes Alcohol intake: unknown Substance use: unknown Gender identity (if verbalized by the patient): Female Comments At time of signature, agree with nursing past medical, surgical, social and family history. There is no relevant family history pertinent to the presenting complaint Exam Narrative: GENERAL: Well-appearing, well-nourished, and in no acute distress. HEAD: Normocephalic EYES: PERRLA, conjunctivae clear ENT: Nares clear, turbinates edematous and erythematous, clear discharge. Mucous membranes moist. TM pearly palma with dull light reflex bilaterally; no tragal tenderness. Oropharynx erythematous without lesions. Tonsils red and enlarged and without exudate, no drooling, positive for hoarseness, no trismus, uvula midline,post nasal drainage. NECK: Supple.right lymphadenopathy CHEST: scattered wheezes on auscultation, breath sounds equal. + wheezing, no rhonchi, rales, or stridor. No respiratory distress, speaks in full sentences.cough SAO2 98% on room air HEART: Regular rate and rhythm. No murmur heard. SKIN: Warm, dry, no rash. NEURO: Alert and oriented x3. PSYCH: Normal mood and affect Course Course Emergency Course: Patient is aware of diagnosis, understands and agrees to treatment plan.? Anticipatory guidance given.? Patient agrees to follow-up as directed and is aware of reasons to seek care at the emergency department. Portions of this record may have been created with voice recognition software Level of Care: Express Care Visit Vital Signs Vital signs: Vital Signs Temperature 36.8 C 01/13/24 17: Pulse Rate 92 01/13/24 17: Respiratory Rate 20 01/13/24 17:26 Blood Pressure 142/95 H 01/13/24 17:26 Pulse Oximetry 98 01/13/24 17:26 Oxygen Delivery Room Air 01/13/24 17:26 Temperature 36.8 C 01/13/24 17: Pulse Rate 92 01/13/24 17:26 Respiratory Rate 20 01/13/24 17:26 Blood Pressure 142/95 H 01/13/24 17:26 Pulse Oximetry 98 01/13/24 17:26 Oxygen Delivery Room Air 01/13/24 17:26 Reviewed MDM - URI/Sore Throat MDM Narrative Medical decision making narrative: Differential diagnosis considered: Clement virus, strep pharyngitis, allergic rhinitis, upper respiratory tract infection, sinusitis, rhinosinusitis, nasopharyngitis. viral pharyngitis, otitis media, otitis externa, pneumonia, bronchitis, viral cough syndrome, viral syndrome, and influenza.? Exam findings show no acute concerns or changes; patient is non-toxic appearing and is in no distress.? Patient is appropriate for outpatient treatment and follow-up. Differential Diagnosis Differential diagnosis: Likely upper respiratory infection, viral infection, bronchitis, pharyngitis and other (strep pharyngitis, tonsillitis) Medical Records Attestation: I reviewed the patient's medical records. Lab Data Attestation: I reviewed the patient's lab results. Lab results narrative: strep screen negative, culture sent Labs: Lab Results 01/13/24 Range/Units 17:36 POC Grp A Strep Screen Negative (Negative) Critical Care Time Critical Care Time Critical Care Time: No Discharge Plan Discharge Clinical Impression: Bronchitis, Tonsillitis Patient Disposition: Home, Self-Care Condition: Stable Instructions: Antibiotic Form, Acute Bronchitis (ED), Tonsillitis (ED) Additional Instructions: Increase fluids especially juices and water [id number] cough and cold medicine of your choice for your symptoms Tylenol or ibuprofen for any fever pain Continue your inhaler/nebulizer as directed Steroids as directed--take with food heat to the face 20-30 minutes 4-6 times a day for pain Salt water gargles, throat lozenges or throat sprays as desired Antibiotic as directed--finished the medication If your symptoms persist, change or worsen significantly before you can contact your personal physician then please, without delay, go to the emergency department for further evaluation. Follow-up with PCP in 7-10 days or sooner if needed Follow up with PCP soon in regards to your blood pressure which is elevated above threshold for referral. Blood pressure above 120/80 may indicate pre- hypertension. 142/95 Prescriptions: New albuterol sulfate 90 mcg/actuation HFA aerosol inhaler 2 puff inhalation QID PRN (Reason: shortness of breath or wheezing) Qty: 6.7 0RF Rx Instructions: blue one fluticasone propion-salmeterol [Advair Diskus] 500-50 mcg/dose blister with device 1 inh inhalation Q12H Qty: 60 0RF ibuprofen 600 mg tablet 600 mg PO QID PRN (Reason: fever or pain) Qty: 30 1RF amoxicillin-pot clavulanate 875-125 mg tablet 1 tablet PO Q12H Qty: 20 0RF prednisone 20 mg tablet 20 mg PO BID Qty: 10 0RF No Action fluticasone propion-salmeterol [Advair Diskus] 500-50 mcg/dose blister with device See Rx Instructions .ROUTE .COMPLEX Rx Instructions: as prescribed albuterol sulfate 90 mcg/actuation HFA aerosol inhaler 2 puff inhalation QID PRN (Reason: shortness of breath or wheezing) Qty: 8.5 0RF albuterol sulfate 2.5 mg /3 mL (0.083 %) solution for nebulization 2.5 mg inhalation Q4H PRN (Reason: shortness of breath or wheezing) Qty: 75 0RF Follow-up/Referrals: Deonte,Leonel Chiu MD [Primary Care Provider] - Time of Disposition: 18:31 Quality Jesica Coma Scale Eyes: Open Verbal: Oriented and Alert Motor: Follows Commands Jesica Coma Total Score: 15
== END 2024-01-13 18:48 | disposition home or self-care (01) ==
PROVIDERS: Emergency Provider Registered Nurse; PCP Family Medicine
DX: J40 Bronchitis, not specified as acute or chronic (principal); J03.90 Acute tonsillitis, unspecified; J44.9 Chronic obstructive pulmonary disease, unspecified; F17.210 Nicotine dependence, cigarettes, uncomplicated
CPT/HCPCS: 87081; 87880; 99213; G0463

== ENCOUNTER 2024-04-17 12:15 | Emergency (ER) | payer OTHER, SELFPAY ==
--- NOTE | ~2024-04-17 | XR_ITS ---
Clinical Indication: Cough PA and lateral views of the chest: Comparison: None Findings: The lungs are clear, without evidence of focal consolidation or pleural effusion. Cardiome diastinal silhouette is within normal limits. Bones and soft tissues are unremarkable. Impression: Normal chest. Reviewed, dictated and finalized at location . Impression: Normal chest.
[2024-04-17 12:20] VITALS: BP 145/93; PULSE 103; RESP 24; TEMP 36.6; O2SAT 95
--- NOTE | 2024-04-17 12:28 | ED_ITS ---
HPI - URI/Sore Throat General Chief Complaint: Upper Respiratory Infection Stated Complaint: flu symptoms Time Seen by Provider: 04/17/24 12:28 Source: patient, RN notes reviewed and old records reviewed Mode of arrival: ambulatory Limitations: no limitations History of Present Illness HPI Narrative: 49 year old female who presents to [facility] care with complaints of feeling short of breath, having acute cough with expectoration of yellowish green mucous for 2 week duration. Patient reports that she has pretty much been in bed for 2 weeks. Patient reports that her mother and sister both had the flu and she thinks she may of initially had the flu with body aches and some fevers when she first got ill but never was tested.Patient continues to have productive cough and is expectorating yellowish mucous, has not had recent fevers continues to feel short of breath. MD elicited complaint: cough Pertinent past history: COPD and asthma Onset (ago): week(s) (2) Description of mucous: yellow and green Able to tolerate fluids by mouth: Yes Treatments prior to arrival: other (Theraflu daytime and night timem Mucinex and using her inhalers) Related Data Home Medications ?Medication ?Instructions ?Recorded ?Confirmed ?Last Taken ?Type fluticasone 500 mcg-salmeterol 50 See Rx Instructions .Route .COMPLEX 08/05/22 01/13/24 Unknown History mcg/dose blistr powdr for inhalation (Advair Diskus) Allergies Allergy/AdvReac Type Severity Reaction Status Date / Time No Known Allergies Allergy Verified 04/17/24 12:26 Review of Systems Review of Systems: CONSTITUTIONAL: Reports malaise, no present chills, sweats, or fever reports when she was first ill EYES: Denies visual changes, redness, or discharge. ENT: Reports rhinorrhea, congestion, sinus pain,no otalgia and no sore throat. CARDIOVASCULAR: Denies chest pain, palpitations, or edema. RESPIRATORY: Reports cough.? Reports some dyspnea. GASTROINTESTINAL: Denies abdominal pain, nausea, vomiting, diarrhea SKIN: Denies rash or itching. MUSCULOSKELETAL: Reports some myalgia. NEUROLOGIC: Denies headache. All systems reviewed & are unremarkable except as noted in HPI and below PMFSH Past Medical History Medical History Bipolar disorder Genital herpes Fracture of right wrist COPD (chronic obstructive pulmonary disease) Asthma Surgical History Surgical History Previous section Social History Social History Smoking packs per day: 0.5 Smoking cigarettes per day: 10.0 Years smoked: 25 Smoking pack-years: 12.50 Smoking status: Current every day smoker Tobacco type: cigarettes Alcohol intake: unknown Substance use: unknown Gender identity (if verbalized by the patient): Female Comments At time of signature, agree with nursing past medical, surgical, social and family history. There is no relevant family history pertinent to the presenting complaint Exam Narrative: GENERAL: Well-appearing, well-nourished, and in no acute distress. HEAD: Normocephalic EYES: PERRLA, conjunctivae clear ENT: Nares clear, turbinates edematous and erythematous, clear discharge. Mucous membranes moist. TM pearly palma with dull light reflex bilaterally; no tragal tenderness. Oropharynx erythematous without lesions. Tonsils not enlarged and without exudate, no drooling, no hoarseness, no trismus, uvula midline.post nasal drainage noted. NECK: Supple. No lymphadenopathy CHEST: Scattered wheezing some rhonchi right base on auscultation, breath sounds equal. + wheezing,+ rhonchi,no rales, or stridor. No respiratory distress, speaks in full sentences. some tachypnea noted, productive cough SAO2 95% on room air HEART: Regular rate and rhythm. No murmur heard. SKIN: Warm, dry, no rash. NEURO: Alert and oriented x3. PSYCH: Normal mood and affect Course Course Emergency Course: Patient is aware of diagnosis, understands and agrees to treatment plan.? Anticipatory guidance given.? Patient agrees to follow-up as directed and is aware of reasons to seek care at the emergency department. Portions of this record may have been created with voice recognition software Level of Care: Express Care Visit Vital Signs Vital signs: Vital Signs Temperature 36.6 C 04/17/24 12:20 Pulse Rate 103 H 04/17/24 12:20 Respiratory Rate 24 H 04/17/24 12:20 Blood Pressure 145/93 H 04/17/24 12:20 Pulse Oximetry 95 04/17/24 12:20 Oxygen Delivery Room Air 04/17/24 12:20 Temperature 36.6 C 04/17/24 12:20 Pulse Rate 103 H 04/17/24 12:20 Respiratory Rate 24 H 04/17/24 12:20 Blood Pressure 145/93 H 04/17/24 12:20 Pulse Oximetry 95 04/17/24 12:20 Oxygen Delivery Room Air 04/17/24 12:20 Reviewed MDM - URI/Sore Throat MDM Narrative Medical decision making narrative: Differential diagnosis considered: Clement virus, strep pharyngitis, allergic rhinitis, upper respiratory tract infection, sinusitis, rhinosinusitis, nasopharyngitis. viral pharyngitis, otitis media, otitis externa, pneumonia, bronchitis, viral cough syndrome, viral syndrome, and influenza.? Exam findings show no acute concerns or changes; patient is non-toxic appearing and is in no distress.? Patient is appropriate for outpatient treatment and follow-up. Medical Records Attestation: I reviewed the patient's medical records. Lab Data Attestation: I reviewed the patient's lab results. Lab results narrative: Onfluenza A negative, Influenza B negative, Covid antigen negative Labs: Lab Results 04/17/24 Range/Units 12:58 POC Influenza A Ag Negative (Negative) POC Influenza B Ag Negative (Negative) POC SARS CoV-2 Ag Negative (Negative) reviewed Imaging Data Attestation: I personally reviewed and interpreted this imaging study as follows: My impression: normal [facility] Radiologist's impression: [place] [address] XRay Report Signed Patient: Izzy Tavares : 1975 MR#: [id number] Age: 49 Acct:[id number] Loc: [facility] ADM Date: 04/17/24Attending Dr: Ordering Physician: Bianca Du APRN Date of Service: 04/17/24 Procedure(s): XR chest 2V Accession Number(s): [id number] cc: Bianca Du APRN; Deonte, Leonel Chiu MD~ Clinical Indication: Cough PA and lateral views of the chest: Comparison: None Findings: The lungs are clear, without evidence of focal consolidation or pleural effusion. Cardiomediastinal silhouette is within normal limits. Bones and soft tissues are unremarkable. Impression: Normal chest. Reviewed, dictated and finalized at [facility]. Please be advised this is a medical document. It is intended for eynb-mo-evgp communication. It is written in medical language and may contain unfamiliar abbreviations or verbiage. Medical documents are intended to carry relevant information, facts as evident, and the clinical opinion of the practitioner at the time of the encounter. This report may have been done utilizing a voice recognition system. Attempts have been made to correct errors. However, there may be uncorrected grammatical, spelling, and recognition errors present. The file time of this note does not necessarily represent the time of service. Dictated By: Kwaku Sanford MD 04/17/24 1243 Signed By: <Electronically signed by Kwaku Sanford MD in OV> Critical Care Time Critical Care Time Critical Care Time: No Discharge Plan Discharge Clinical Impression: Acute exacerbation of chronic obstructive pulmonary disease Patient Disposition: Home, Self-Care Condition: Stable Instructions: Antibiotic Form, COPD (Chronic Obstructive Pulmonary Disease) (ED), Bronchospasm (ED) Additional Instructions: Increase fluids especially juices and water Egva-nkq-dyyevcu cough and cold medicine of your choice for your symptoms Zyrtec, Claritin or Margarette daily for sinus congestion Continue your inhaler/nebulizer as directed Steroids as directed--take with food heat to the face 20-30 minutes 4-6 times a day for pain Salt water gargles, throat lozenges or throat sprays as desired Antibiotic as directed--finished the medication If your symptoms persist, change or worsen significantly before you can contact your personal physician then please, without delay, go to the emergency department for further evaluation. Follow-up with PCP in 7-10 days or sooner if needed Follow up with PCP soon in regards to your blood pressure which is elevated above threshold for referral. Blood pressure above 120/80 may indicate pre- hypertension. 145/93 Quit smoking Patient Language: Malay Prescriptions: New prednisone 50 mg tablet 50 mg PO DAILY Qty: 5 0RF Rx Instructions: start today then take in the mornings azithromycin 250 mg tablet See Rx Instructions .ROUTE .COMPLEX Qty: 6 0RF Rx Instructions: For 250 mg dose pack: take 500 mg today (day 1), then 250 mg for 4 days (days 2-5) albuterol sulfate 2.5 mg /3 mL (0.083 %) solution for nebulization 2.5 mg inhalation Q4H Qty: 90 0RF No Action fluticasone propion-salmeterol [Advair Diskus] 500-50 mcg/dose blister with device See Rx Instructions .ROUTE .COMPLEX Rx Instructions: as prescribed albuterol sulfate 90 mcg/actuation HFA aerosol inhaler 2 puff inhalation QID PRN (Reason: shortness of breath or wheezing) Qty: 8.5 0RF albuterol sulfate 2.5 mg /3 mL (0.083 %) solution for nebulization 2.5 mg inhalation Q4H PRN (Reason: shortness of breath or wheezing) Qty: 75 0RF albuterol sulfate 90 mcg/actuation HFA aerosol inhaler 2 puff inhalation QID PRN (Reason: shortness of breath or wheezing) Qty: 6.7 0RF Rx Instructions: blue one fluticasone propion-salmeterol [Advair Diskus] 500-50 mcg/dose blister with device 1 inh inhalation Q12H Qty: 60 0RF Follow-up/Referrals: Deonte,Leonel Chiu MD [Primary Care Provider] - Time of Disposition: 13:21 Quality [place] Coma Scale Eyes: Open Verbal: Oriented and Alert Motor: Follows Commands Jesica Coma Total Score: 15
[2024-04-17 13:15] LABS: EDCOVIDSCREEN Negative (Negative); EDINFLUASCREEN Negative (Negative); EDINFLUBSCREEN Negative (Negative)
--- OUTSIDE RECORDS SUMMARY | 2024-04-17 14:07 | XMS_ITS ---
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 6-10 Alcohol Screen (Audit-C) Question Answer Notes Did you have a drink contain ing alcohol in the past year? Yes How often did you have a dri nk containing alcohol in the past year? 2 to 3 times a week (3 points) How many drinks did you have on a typical day when you were drinking in the past year? 10 or more drinks (4 points) How often did you have 6 or more drinks on one occasion in the past year? Weekly (3 points) Points 10 Interpretation Positive PRAPARE Question Answer Notes Date Completed/Updated: 04/06/2024 What is your current housing situation? I have h ousing Are you worried about losing your housing? Yes What is the highest level of school that you have finished? High school diploma or GED What is your current work situation? 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 Check all that apply Medicine or any health care (medical, dental, mental health or vision),Phone Has lack of transportation k ept you from medical appointments, meetings, work or from getting things needed for daily living? Yes, it has kept me from non-medical meetings, appointments, work, or getting things needed for daily living How often do you see or talk to people that you care about and feel close to? (For example: talking to friends on the phone, visiting friends or family, going to lutheran or club meetings) More than 5 times a week How stressed are you? Stress is when someone feels tense, nervous, anxious, or can\t sleep at night because their mind is troubled I choos not to answer this question Do you feel physically and e motionally safe where you currently live? Yes In the past year, have you b een afraid of your partner or ex-partner? Yes PRAPARE Score: 9 Tobacco Control (Standard) Question Answer Notes Tobacco use: Current every day smoker Additional Findings: Tobacco user Moderate cigar ette smoker (10-19 cigs/day) Section Notes: Encounters Encounter Location Date Provider Diagnosis [address] [address] 04/07/2024 Joo Rasmussen Plan Of Treatment No Information Progress Notes * Izzy MILTON LDOB: [birth year] (49 yo F)Acc No.[id number]:04/07/2024 Patient: Casey VIRKell Shahida :1975 A ge:49 Y S ex:Female Address:[address] [place] [address], [id number] Subjective: * Chief Complaints: * P GLENN Assess * Medical History: * Surgical History: * Hospitalization/Major Diagno stic Procedure: * Social History: S ocial Determinants: Chandana Zayas ate Completed/Updated: 0 04/06/2024 W hat is your current housing situation? I have housing A re you worried about losing your housing??Yes W hat is the highest level of school that you have finished? H igh school diploma or GED W hat is your current work situation? 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 Check all that apply M edicine or any health care (medical, dental, mental health or vision),Phone H as lack of transportation kept you from medical appointments, meetings, work or from getting things needed for daily living? Y es, it has kept me from non-medical meetings, appointments, work, or getting things needed for daily living H ow often do you see or talk to people that you care about and feel close to? (For example: talking to friends on the phone, visiting friends or family, going to lutheran or club meetings) M ore than 5 times a week H ow stressed are you? Stress is when someone feels tense, nervous, anxious, or can\t sleep at night because their mind is troubled I choos not to answer this question D o you feel physically and emotionally safe where you currently live? Y es I n the past year, have you been afraid of your partner or ex-partner? Y es P RAPARE Score: 9 T obacco Use: D ont use, Tobacco Use/Smoking A re you a c urrent smoker H ow many cigarettes a day do you smoke? 6 -10 Tobacco Control (Standard) T obacco use: C urrent every day smoker A dditional Findings: Tobacco user M oderate cigarette smoker (10-19 cigs/day) D rugs/Alcohol: A lcohol Screen (Audit-C) D id you have a drink containing alcohol in the past year? Y es H ow often did you have a drink containing alcohol in the past year? 2 to 3 times a week (3 points) H ow many drinks did you have on a typical day when you were drinking in the past year? 1 0 or more drinks (4 points) H ow often did you have 6 or more drinks on one occasion in the past year? W eekly (3 points) P oints 1 0 I nterpretation P ositive * Medications: Objective: * Vitals: * Physical Examination: Assessment: Plan: * Treatment: * Procedure Codes: * true * Date: Generated for Nikolai torres/Dulce Maria/Kumarsmrashad on: 0 04/17/2024 02:07 PM CDT
--- OUTSIDE RECORDS SUMMARY | 2024-04-17 14:07 | XMS_ITS | CONTINUITY OF CARE DOCUMENT ---
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
--- OUTSIDE RECORDS SUMMARY | 2024-04-17 14:07 | XMS_ITS | Patient Health Record ---
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 Name Role Phone Joo Rasmussen Primary Care Provider Allergies No Known Allergies Reason For Referral No Information Medications Medication SIG (Take, Route, Frequency, Duration) Notes Start Date End Date Status Fluticasone Propionate 50 MCG/ACT 1 spray in each nostril Nasally twice a day Active Advair Diskus 500-50 MCG/ACT 1 puff Inhalation Twice a day Active Ventolin HFA 108 (90 Base) MCG/ACT 2 puffs Inhalation every 4 hrs As needed shortness of breath 09/29/2023 Active predniSONE 20 MG 1 tablet Orally Once a day for 5 09/13/2023 Active Albuterol Sulfate (2.5 MG/3ML) 0.083% 3mL Inhalation every 4 hours for 10 days As needed dyspnea Active Cetirizine HCl 10 MG 1 tablet Orally Onc e a day Active Nicorette 2 MG 1 piece for 30 minute as needed Mouth/Throat EVERY 1-2 HOURS As needed SMOKING CESSATION cinnamon flavor only please 06/25/2021 Active Immunizations Vaccine Route Administration Date Status Comme nts COVID-19 Moderna 2nd IM Intramuscular 05/23/2020 Administnaheed red COVID-19 Moderna 1ST IM Intramuscular 04/25/2020 Admintripp wise Social History Tobacco Use: Social History Observation [...] work (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) In the past year, have you o [...] phone, visiting friends or family, going to rastafari or club meetings) More than 5 times [...] cigar ette smoker (10-19 cigs/day) Section Notes: Problems Problem Type SNOMED Code ICD Code Onset Dates Problem Status W/U Status Risk Notes Problem Tobacco user (270759534) Nicotine dependence, unspecified, uncomplicated (F17.200) Active confirmed Problem Posttraumatic stress disorder (08467286) PTSD (post-traumatic stress disorder) (F43.10) 11/08/19 Active confirmed Problem Bipolar 1 disorder (785142421) Bipolar 1 disorder (F31.9) 11/08/19 22 Active confirmed Problem Acute exacerbation of chronic obstructive airways disease (486205295) COPD exacerbation (J44.1) Active confirmed Problem 54224833 Chronic fatigue (R53.82) Active confirmed Problem 707802325 Methamphetamine abuse (F15.10) Active confirmed Problem 68698650 Herpes (B00.9) Active confirmed Problem 28359415 Menopausal symptoms (N95.1) Active confirmed Problem 37488453 Chronic obstructive pulmonary disease, unspecified COPD type (J44.9) Active confirmed Problem Tobacco use (730123750) Tobacco use disorder (F17.200) Active confirmed Problem 14447147 Pain with urination (R30.9) Active confirmed Problem Obesity (312901829) Obesity, unspecified classification, unspecified obesity type, unspecified whether serious comorbidity present (E66.9) Active confirmed Problem Abnormal mammogram (902726369) Mammogram abnormal (R92.8) Active confirmed Problem 86265105 Nonintractable episodic headache, unspecified headache type (R51.9) Active confirmed Problem 581516977 Alcohol related disorder (F10.99) Active confirmed Vital Signs Heart Rate 88 /min 09/29/2023 Temperature 97.3 degrees Fahrenheit 09/13/2023 Respiratory Rate 16 /min 09/29/2023 Blood pressure diastolic 98 mm Hg 09/29/2023 Oximetry 95 % 09/29/2023 Height 63 in 09/29/2023 Blood pressure systolic 150 mm Hg 09/29/2023 Weight 190.8 lbs 09/29/2023 BMI 33.8 kg/m2 09/29/2023 Encounters Encounter Location Date Provider Diagnosis [address] [place] [address] 09/13/2023 Joo Tsangner COPD exacerbation J44.1 ; Right forearm pain M79.631 ; Nicotine dependence, unspecified, uncomplicated F17.200 ; PTSD (post-traumatic stress disorder) F43.10 ; Alcohol related disorder F10.99 ; Serous otitis media, unspecified chronicity, unspecified laterality H65.90 and Chronic obstructive pulmonary disease, unspecified COPD type J44.[address] [address] 09/29/2023 Joo Rasmussen [facility] [address] [place] [address] 09/27/2023 Joo Rasmussen Chronic obstructive pulmonary disease, unspecified COPD type J44.9 [facility] [address] [place] [address] 09/27/2023 Joo Rasmussen [address] [address] 09/29/2023 Joo Rasmussen Chronic obstructive pulmonary disease, unspecified COPD type J44.[address] [address] 09/30/2023 Joo Rasmussen [address] [address] 03/23/2024 Joo Rasmussen Chronic obstructive pulmonary disease, unspecified COPD type J44.9 and Serous otitis media, unspecified chronicity, unspecified laterality H65.[address] [address] 03/31/2024 Joo Rasmussen [address] [address] 03/31/2024 Joo Rasmussen [address] [address] 04/07/2024 Joo Rasmussen Assessments Encounter Date Diagnosis (ICD Code) Assessment Notes Treatment Notes Treatment Clinical Notes Section Notes 09/13/2023 COPD exacerbation (ICD-10 - J44.1) 09/27/2023 Chronic obstructive pulmonary disease, unspecified COPD type (ICD-10 - J44.9) 09/29/2023 Chronic obstructive pulmonary disease, unspecified COPD type (ICD-10 - J44.9) 03/23/2024 Chronic obstructive pulmonary disease, unspecified COPD type (ICD-10 - J44.9) 09/13/2023 Right forearm pain (ICD-10 - M79.631) CLINICALLY FOREARM EXTENSOR STRAIN. JADE APPLIED. DISCUSSED HEAT, ICE, STRETCHES. 03/23/2024 Serous otitis media, unspecified chronicity, unspecified laterality (ICD-10 - H65.90) 09/13/2023 Nicotine dependence, unspecified, uncomplicated (ICD-10 - F17.200) WISHES TO QUIT BUT ONLY WITH CINNAMON GUM. 09/13/2023 PTSD (post-traumatic stress disorder) (ICD-10 - F43.10) WILL SEE PSYCH 09/13/2023 Alcohol related disorder (ICD-10 - F10.99) PLANS TO ATTEND AA. DECLINED MEDICATION. 09/13/2023 Serous otitis media, unspecified chronicity, unspecified laterality (ICD-10 - H65.90) 09/13/2023 Chronic obstructive pulmonary disease, unspecified COPD type (ICD-10 - J44.9) Plan Of Treatment No Information Insurance Providers Payer Name Payer Address Payer Phone Subscriber Number Group Number Insured Name Patient Relationship to Insured Coverage Start Date Coverage End Date [employer] [address] [place] [address] [phone] [id number] Izzy Tavares Self - patient is the insured 8 [employer] [address] [place] [address] [phone] [id number] Izzy Tavares Self - patient is the insured 1 [employer] [address] [place] [address] [phone] [id number] Izzy Tavares Self - patient is the insured 8 Medications Administered Medication Instructions Date of Administration Dosage Notes Vivitrol 06/27/2020 380 mg rivet heater-AlkFloDesign Wind Turbinees pt tolerated injection well. Pt voiced no questions or concerns. Medical (General) History Medical History History ICD Code COPD Asthma heroin use disorder depression anxiety brochitis She reports Encephalopathy when she was 4 Surgical History Surgery Date(Month/Year) c section 2010 Hospitalization History Reason Date(Month/Year) COPD 02/2016
--- OUTSIDE RECORDS SUMMARY | 2024-04-17 14:07 | XMS_ITS | Clinical Summary ---
Author Organization [facility] Address [address] [place] [address] Phone Care Team Providers Care Stereotyper Apprentice Name Role Phone Joo Rasmussen MD Primary Care Provider Allergies No known active allergies Medications ibuprofen (MOTRIN) 800 MG Tablet Take 1 Tab by mouth every 8 hours. 30 Tab 0 Active busPIRone (BUSPAR) 10 MG Tablet Take 10 mg by mouth 3 times daily. Active buPROPion (WELLBUTRIN) 150 MG XL tablet Take 300 mg by mouth daily. 1 Active azithromycin (ZITHROMAX) 500 MG Tablet 1 Active nicotine (NICODERM CQ) 21 MG/24HR PATCH 24 HR 1 Patch by Transdermal route every 24 hours. 30 Patch 1 Active Additional Information Patient not taking.Reported on 12/10/2020 fluticasone-maged meterol (ADVAIR) 100-50 MCG/DOSE AEROSOL POWDER, BREATH ACTIVATED take 1 Puff by inhalation 2 times daily. 1 Each 1 Active albuterol 108 (90 Base) MCG/ACT Aerosol Solution take 2 Puffs by inhalation every 6 hours as needed for Wheezing. 8 g 2 Active predniSONE (DELTASONE) 50 MG Tablet Take 1 Tablet by mouth daily. 5 Tablet 2 Active Family History Medical History Relation Name Comments ADD / ADHD Mother Alcohol Abuse Mother Asthma Mother Relation Name Status Comments Mother Social History Tobacco Use Types Packs/Day Years Used Date Smoking Tobacco: Every Day Cigarettes Smokeless Tobacco: Never Tobacco Cessation:Ready to Q uit: Yes Alcohol Use Standard Drinks/Week Comments Not Currently 0 (1 standard drink = 0.6 oz pur e alcohol) Comments No Sex and Gender Information Value Date Recorded Sex Assigned at Not on file Legal Sex Female 11:55 PM CDT Gender Identity Not on file Sexual Orientation Not on file Last Filed Vital Signs Vital Sign Reading Time Taken Comments Blood Pressure 119/63 04/24/2022 6:48 PM CDT Pulse 92 04/24/2022 6:48 PM CDT Temperature 37.1 C (98.7 F) 04/24/2022 6:48 PM CDT Respiratory Rate 18 04/24/2022 6:48 PM CDT Oxygen Saturation 99% 04/24/2022 6:48 PM CDT Inhaled Oxygen Concentration - - Weight 86.2 kg (190 lb) 04/24/2022 6:48 PM CDT Height 160 cm (5' 3 ) 04/24/2022 6:48 PM CDT Body Mass Index 33.66 04/24/2022 6:48 PM CDT Plan of Treatment Health Maintenance Due Date Last Done Comments Mammogram 1977 TdaP Immunization 1977 Pneumococcal Immunization Co mbined (1 of 2 - PCV) 02/10/1996 Pap Smear 1998 Cervical Cancer Screening (CCS) 2007 HPV/Cotest 2007 Hepatitis B Immunization (2 of 3 - Hep B Twinrix 3-dose series) 01/03/2016 12/06/2015 Discussion re Starting/Frequ ency of Mammograms 2017 Colonoscopy 2022 Colorectal Cancer Screening 2022 Influenza Immunization (#1) 2023 SARS-COV-2 Immunization ( season) 2023 Respiratory Syncytial Virus (RSV) Immunization (Adult) (1 - 1-dose 75+ series) 02/10/2052 Hepatitis C Virus (HCV) Screening Completed 021 Meningococcal Immunization (ACWY) Aged Out No longer eligible based on patient's age to complete this topic Rotavirus Immunization Aged Out No lo nger eligible based on patient's age to complete this topic Insurance MEDICAID [place] Care Teams Stereotyper Apprentice Relationship Specialty Start Date End Date Joo Rasmussen MD [address] [facility] [address] [place] [address] PCP - General Internal Medicine 05/18/21
--- OUTSIDE RECORDS SUMMARY | 2024-04-17 14:08 | XMS_ITS | Clinical Summary ---
Author Organization [facility] Address [address] [place] [address] Care Team Providers Care Miller Head Name Role Phone Unavailable Primary Care Provider Unavailabl e Source Comments [facility],non-owned Affiliates and Associated Physician Practices is amultiple site organization consisting of ambulatory clinics and hospital sitesin [place], [place], [place] and [place]. This disclosure is being madepursuant to the Care Everywhere program and may not contain all information available regarding this patient. Last updated 17.[facility] [employer] Allergies No known active allergies Medications * Be aware that medications may not be up to date on this document. Alwaysverify current medications with the patient. Medication Sig Dispensed Refills Start Date End Date Status albuterol HFA (PROVENTIL;VENTOLIN ;PROAIR) 108 (90 BASE) MCG/ACT inhalerIndications: Chronic Obstructive Pulmonary Disease Inhale 2 puffs by mouth every 6 hours as needed for Shortness of Breath or Wheezing Reasons: Chronic Obstructive Lung Disease Active fluticasone-salmete rol (ADVAIR) 250-50 MCG/DOSE inhalerIndications: Chronic Obstructive Pulmonary Disease Inhale 1 puff by mouth 2 times daily Reasons: Chronic Obstructive Lung Disease Active gabapentin (NEURONTIN) 300 MG capsuleIndications: Agitation Take 1 capsule by mouth 3 times daily Reasons: Agitation 45 capsule 1 06/07/2017 Active QUEtiapine (SEROQUEL) 300 MG tabletIndications:D epressive Phase Bipolar Mood Disorder Take 1 tablet by mouth at bedtime Reasons: Depressive Phase of Manic-Depression 15 tablet 1 06/07/2017 Active nicotine (NICODERM CQ) 21 MG/24HR patchIndications:Ni cotine Dependence Apply 1 patch to skin once daily Remove old patch before applying new patch. Reasons: Nicotine Addiction 30 patch 06/07/2017 Active Active Problems Problem Noted Date Diagnosed Date Bipolar I disorder, most recent episode depresse d 06/02/2017 Family History Medical History Relation Name Comments COPD - Chronic Obstructive Pulmonary Disease Mother Leukemia Other Relation Name Status Comments Mother Other Social History Tobacco Use Types Packs/Day Years Used Date Smoking Tobacco: Every Day Cigarettes 1 26 Smokeless Tobacco: Never Tobacco Cessation:Ready to Q uit: No; Counseling Given: Yes Alcohol Use Standard Drinks/Week Comments No 0 (1 standard drink = 0.6 oz pur e alcohol) Sex and Gender Information Value Date Recorded Sex Assigned at Not on file Gender Identity Not on file Sexual Orientation Not on file Last Filed Vital Signs Vital Sign Reading Time Taken Comments Blood Pressure 114/58 06/08/2017 6:18 AM CDT Pulse 102 06/08/2017 6:18 AM CDT Temperature 36.9 C (98.4 F) 06/07/2017 8:06 PM CDT Respiratory Rate 18 06/08/2017 6:18 AM CDT Oxygen Saturation 95% 06/08/2017 6:18 AM CDT Inhaled Oxygen Concentration - - Weight 69.7 kg (153 lb 11.2 oz) 06/03/2017 1:15 PM CDT Height 160 cm (5' 3 ) 06/03/2017 12:16 AM CDT Body Mass Index 27.23 06/03/2017 12:16 AM CDT Plan of Treatment Health Maintenance Due Date Last Done Comments COLOGUARD (AGES 45-75) - COL ON CA SCREENING 1977 COLON MONITORING 1977 COLONOSCOPY - COLON CA SCREENING 1977 CT COLONOGRAPHY - COLON CA SCREENING 1977 Colorectal Cancer Screening 1977 FIT - COLON CA SCREENING 1977 FLEX SIG - COLON CA SCREENING 1977 MAMMOGRAM 1977 HIV SCREENING 02/10/1992 HEPATITIS C SCREENING 02/05/1995 DTAP/TDAP/TD VACCINES (1 - Tdap) 02/10/1996 HEPATITIS B VACCINE (1 of 3 - 19+ 3-dose series) 02/10/1996 PNEUMOCOCCAL VACCINE (1 of 2 - PCV) 02/10/1996 PAP SMEAR 04/11/2001 04/11/1998 LIPID TESTING 06/03/2022 06/03/2017 COVID-19 VACCINE ( - 2023-2 5 season) 2023 INFLUENZA VACCINE (#1) 2023 ZOSTER VACCINE (1 of 2) 2027 HIB VACCINE Aged Out No longer eligi ble based on patient's age to complete this topic HPV VACCINE Aged Out No longer eligi ble based on patient's age to complete this topic MENINGOCOCCAL (Group B) VACCINE Aged Out No longer eligible based on patient's age to complete this topic MENINGOCOCCAL VACCINE Aged Out No kei ajit eligible based on patient's age to complete this topic Procedures Procedure Name Priority Date/Time Associated Diagnosis Comments LIPID PROFILE Routine 06/03/2017 12:30 AM CDT CYTOLOGY SMEAR PAP THIN PREP KAYA 04/11/1998 10:29 AM [employer] SYSTEMS ADMINISTRATOR from Last 3 Months or Most Recently Relevant to Health Maintenance Results * LIPID PROFILE (06/03/2017 12:30 AM CDT) Cholesterol 121 <200 mg/dL 06/03/2017 1:10 AM CDT [facility] Triglycerides 63 <150 mg/dL 06/03/2017 1:10 AM CDT [facility] HDL Cholesterol 56 >40 mg/dL 8 1:10 AM CDT [facility] LDL Calculated 52 <130 mg/dL 06/03/2017 1:10 AM CDT [facility] VLDL Calculated 13 <=30 mg/dL 8 1:10 AM CDT [facility] Chol HDL Ratio 2.2 <4.5 06/03/2017 1:10 AM CDT [facility] LDL/HDL Ratio 0.9 <5.0 06/03/2017 1:10 AM CDT [facility] Blood BLOOD SPECIMEN / Unknown Venipuncture / Unknown 06/03/2017 12:30 AM CDT 06/03/2017 12:44 AM CDT Ricardo Rice MD LAB - CHEMISTRY BENEDICT LANDIN [facility] [address] [place] [address] * CYTOLOGY SMEAR PAP THIN PREP (04/11/1998 10:29 AM [employer] SYSTEMS ADMINISTRATOR) Result CASE NUMBER [id number] Comment: ORDERING PHYSICIAN KETAN STOCK SPECIMEN TYPE PAP Smear Date 04/11/1998 Procedure Cervical/Endocervical, 1 Vial for Thin Prep Received Specimen Adequacy Satisfactory for Evaluation Categorization Within Normal Limits Snomed. 04/16/1998 1527 <1> Building Construction Supervisor Kristian Yan (ASCP) PAP Footnote The PAP smear is only a screening procedure to aid in the detection of cervical cancer and its precursors. It is not a diagnostic procedure and should not be used as the sole means to detect cervical cancer. Both false negative and false positive results have been experienced. MISCELLANEOUS SAMPLES / Unknown 04/11/1998 10:29 AM [employer] SYSTEMS ADMINISTRATOR 04/15/1998 10:29 AM [employer] SYSTEMS ADMINISTRATOR Historical Provider LAB - PATHOLOGY/C YTOLOGY ORDERABLES from Last 3 Months or Most Recently Relevant to Health Maintenance Advance Directives * Full Code (Latest Code Status on File) Date Activated Date Inactivated Comments 06/02/2017 11:28 PM 06/08/2017 12:13 PM
--- OUTSIDE RECORDS SUMMARY | 2024-04-17 14:08 | XMS_ITS ---
Author Organization [facility] Address [address] [place] [address] Care Team Providers Care Clother In Name Role Phone Joo Rasmussen Primary Care Provider REASON FOR VISIT Inhaler refills. Social History Sex Assigned At : Social History Observation Description Sex Assigned At Female Encounters Encounter Location Date Provider Diagnosis [address] [address] 03/31/2024 Joo Rasmussen Plan Of Treatment No Information Progress Notes * Izzy TAVARES LDOB: [birth year] (49 yo F)Acc No.[id number]:03/31/2024 Patient: Stephen PRISCILLAANIAIzzy :1975 A ge:49 Y S ex:Female [address]:[address] [place] [address], [id number] * true * Date: Generated for Printi ng/Faaveryg/eTransmitting on: 0 04/17/2024 02:07 PM CDT
--- OUTSIDE RECORDS SUMMARY | 2024-04-17 14:08 | XMS_ITS | Data Portability ---
Author Organization [facility] Address [address] [place] [address] Care Team Providers Care Installation Coordinator Name Role Phone LOZALEONEL Primary Care Provider Assessment Encounter Date Assessment Date Assessment LastModified by Organization Details LastModified Time 03/01/2019 03/01/2019 Pertinent paperwork was addressed. [email or web address] Not available 03/03/2019 13:51:21 08/08/2019 08/08/2019 We will do PA for Advair if so needed. [email or web address] Not available 08/09/2019 14:42:11 07/19/2023 07/19/2023 48 yo female who presents with URI symptoms Pt's case was discussed w/resident. Documentation was reviewed, and I agree w/resident's note. Dr. Loza Not available 07/20/2023 08:04:56 Plan of Treatment Reminders Order Date Submit Date Provider Last Modified By Organization Details Last Modified Time Details Appointments None record ed. Lab influe nza virus A + B + SARS-C oV-2 (COVID 19) Ag panel, rapid IA, upper respir atory specim en 2023 024 [email or web address] In-Office Order, Internal Use Only DO Not Attach Compendium DO Not Attach Compendium, Do Not Delete/merge, [id number] 4 16:39:55 Referral gastro entero logist referr al 2020 021 ARABELLA Altman MD, [address], [place], [address], 1 11:45:19 Procedures None record ed. Surgeries None record ed. Imaging None record ed. Medication Orders predni sone 20 mg tablet 2023 024 [facility] #39509, [address], [place], [id number], 4 16:24:38 amoxic illin 875 mg tablet 2023 024 [email or web address] [facility] #78866, [address], [place], [id number], 4 16:25:16 albute rol sulfat e HFA 90 mcg/ac tuatio n aeroso l inhale r 2023 024 [facility] #99197, [address], [place], [id number], 4 16:10:48 Advair Diskus 500 mcg-50 mcg/do se powder for inhala tion 2023 024 [facility] #07935, [address], [place], [id number], 4 16:10:49 albute rol sulfat e HFA 90 mcg/ac tuatio n aeroso l inhale r 2020 021 INTERFACE [facility] #14460, [address], [place], [id number], 1 12:34:08 flutic asone 232 mcg-sa lmeter ol 14 mcg/ac tuatio n breath activa brit powdr 2020 021 [email or web address] [facility] #28261, [address], [place], [id number], 1 12:17:47 acyclo vir 800 mg tablet 2019 020 [email or web address] [facility] #80832, [address], [place], [id number], 1 13:28:21 trazod one 50 mg tablet 2019 020 erbina [facility] #76633, [address], [place], [id number], 1 11:16:37 lamotr igine 25 mg tablet 2019 020 [facility] #58353, [address], [place], [id number], 1 11:15:56 clonid ine HCl 0.1 mg tablet 2019 020 [facility] #96897, [address], [place], [id number], 4 15:53:30 gabape ntin 300 mg capsul e 2019 020 [facility] #23966, [address], [place], [id number], 4 15:53:39 ibupro fen 800 mg tablet 2019 020 [facility] #39024, [address], [place], [id number], 4 15:53:45 buspir one 10 mg tablet 2019 020 [facility] #87142, [address], [place], [id number], 4 15:53:24 albute rol sulfat e 2.5 mg/3 mL (0.083 %) soluti on for nebuli zation 2019 020 [facility] #96271, [address], [place], [id number], 4 15:53:05 Advair Diskus 500 mcg-50 mcg/do se powder for inhala tion 2019 020 [email or web address] [facility] #34713, [address], [place], [id number], 1 11:16:54 predni sone 20 mg tablet 2019 020 [facility] #34144, [address], [place], [id number], 4 15:54:03 nicoti ne 21 mg/24 hr daily transd ermal patch 2019 020 [facility] #63102, [address], [place], [id number], 4 15:53:53 nicoti ne 14 mg/24 hr daily transd ermal patch 2019 020 erobbinsma [facility] #20285, [address], [place], [id number], 1 11:16:15 nicoti ne 7 mg/24 hr daily transd ermal patch 2019 020 [email or web address] [facility] #64934, [address], [place], [id number], 1 11:16:08 Zithro max Z-Chinmay 250 mg tablet 2019 020 [facility], [address], [id number], 4 15:53:11 Ventol in HFA 90 mcg/ac tuatio n aeroso l inhale r 2019 020 [facility]-, [address], [address], [place], [place], [id number], 0 13:18:55 predni sone 20 mg tablet 2019 020 [email or web address] [facility]-78300, [address], [address], [place], [place], [id number], 4 15:54:03 Patient TargetsNo targets recorded. Patient Instructions Encounter Date Encounter Id Patient Instructions Last Modified By Organization Details Last Modified Time 03/01/2019 [id number] upper respiratory infection (cold): care instructions [email or web address] Not available 03/01/2019 13:18:54 08/08/2019 [id number] chronic pain: care instructions [email or web address] Not available 08/08/2019 14:28:40 01/25/2020 [id number] genital herpes: care instructions [email or web address] Not available 01/25/2020 14:40:02 04/01/2020 [id number] abdominal pain: care instructions Not available 04/01/2020 12:31:14 chronic obstructive pulmonary disease (COPD): care instructions [email or web address] Not available 04/01/2020 12:33:57 learning about copd and how to prevent lung infections [email or web address] Not available 04/01/2020 12:33:57 07/19/2023 [id number] A healthy lifestyle: care instructions [email or web address] Not available 07/19/2023 16:10:41 Reason for Referral Nurses Assistant Referral for Abdominal pain Referring Physician: Leonel Loza, Family Medicine, Encounter Date: 04/01/2020 Results Created Date Observation Date Name Description Value Unit Range Abnormal Flag Note LastModifiedBy Organization Detail LastModifiedTime 07/19/19 24 07/19/2023 influ celia virus A + B + SARS- CoV-2 (COVI D19) Ag panel , rapid IA, upper respi rator y speci men Flu A negati ve Not Available In-Office Order Internal Use Only DO Not Attach Compendium DO Not Attach Compendium, Do Not Delete/merge, [id number] 07/19/2023 16:11:15 07/19/19 24 07/19/2023 influ celia virus A + B + SARS- CoV-2 (COVI D19) Ag panel , rapid IA, upper respi rator y speci men Flu B negati ve Not Available In-Office Order Internal Use Only DO Not Attach Compendium DO Not Attach Compendium, Do Not Delete/merge, [id number] 07/19/2023 16:11:15 07/19/19 24 07/19/2023 influ celia virus A + B + SARS- CoV-2 (COVI D19) Ag panel , rapid IA, upper respi rator y speci men Rapid SARS CoV 2 Ag, QL IA, respiratory specimen negati ve Not Available In-Office Order Internal Use Only DO Not Attach Compendium DO Not Attach Compendium, Do Not Delete/merge, [id number] 07/19/2023 16:11:15 Result Notes None recorded. Problems Name Problem SNOMED Code Status Onset Date Resolution Date Notes Provider Name and Address Organization Details Recorded Time Elevated blood-pressure reading without diagnosis of hypertension 635072725 Active 2023 Anthony Long MD Attn: [address] [place], [address], [facility] 4 20:20:08 Bipolar disorder 76253283 Active Mary Landers RN null, [place] [facility] 5 15:18:59 Tobacco user 225056753 Active Leonel Loza MD Attn: [address] [place], [address], [place] [facility] 6 17:01:51 Asthma 929228540 Active Leonel Loza MD Attn: [address] [place], [address], [place] [facility] 6 17:01:51 Genital herpes simplex 69172865 Active Mary Landers RN null, [place] [facility] 5 15:18:59 Low back pain 491345020 Active Leonel Loza MD Attn: [address] [place], [address], [place] [facility] 5 18:23:45 Shoulder pain 48200689 Active Leonel Loza MD Attn: [address] [place], [address], [place] [facility] 5 18:23:45 Cervical radiculopathy 60355262 Active Polly Napier [place] null, [place] [facility] 5 14:16:05 Upper respiratory infection 63272881 Active Leonel Loza MD Attn: [address] [place], [address], [place] [facility] 6 12:09:08 Smoker 14494377 Active Leonel Loza MD Attn: [address] [place], [address], [place] [facility] 6 13:37:30 Cough 37273601 Active Leonel Loza MD Attn: [address] [place], [address], [place] [facility] 6 17:01:51 Dyspnea 257587479 Active Maty Pederson LPN null, [place] [facility] 6 14:21:23 Problem Notes None recorded. Procedures Surgical History Date Name Laterality Status Provider Name and Address Organization Details Recorded Time Caesarean Section completed Madina Leal MA [place] - [facility] 06/15/2017 15:13:39 Imaging Results None recorded. Procedure Notes None recorded. Medical Equipment None Reported. Allergies No known drug allergies Medications Name Sig Start Date Stop Date Status Note LastModified by Organization Details LastModified Time Prescriptio n - Prior Authorizati on Request 07/18 completed Not Available Not Available Not Available multivitami n tablet TAKE 1 TABLET BY MOUTH DAILY active Not Available Not Available No t Available amoxicillin 500 mg capsule active Not Available Not Available Not Available methocarbam ol 500 mg tablet 08/07 completed Not Available Not Available Not Available Qvar 80 mcg/actuati on Metered Aerosol oral inhaler Inhale 2 puffs twice a day by inhalatio n route. 06/15 completed Not Available Not Available Not Available nystatin 100,000 unit/mL oral suspension SHAKE LIQUID AND TAKE 5 ML BY MOUTH FOUR TIMES DAILY 07/18 completed Not Available Not Available Not Available clonidine HCl 0.1 mg tablet TK 1 T PO BID 07/18 completed Not Available Not Available Not Available prednisone 10 mg tablet TAKE 5 TABS DAILY X3 DAYS, 4 TABS DAILY X3 DAYS 3 TABS DAILY X3DAYS, 2 TABS DAILY X3DAYS,1 TABDAILY 07/18 completed Not Available Not Available Not Available naproxen 375 mg tablet active Not Available Not Available Not Available nicotine 14 mg/24 hr daily transdermal patch Apply 1 patch every day by transderm al route for 14 days. 04/01 completed Not Available Not Available Not Available quetiapine 300 mg tablet 02/16 completed Not Available Not Available Not Available albuterol sulfate 2.5 mg/3 mL (0.083 %) solution for nebulizatio n INHALE 1 VIAL VIA NEBULIZER EVERY 6 HOURS NEEDED FOR WHEEZING 07/18 completed Not Available Not Available Not Available trazodone 50 mg tablet Take 1 tablet twice a day by oral route for 30 days. 04/01 completed Not Available Not Available Not Available cetirizine 10 mg tablet 07/18 completed Not Available Not Available Not Available azithromyci n 250 mg tablet TK 2 TS PO ON DAY 1, THEN TK 1 T PO D FOR 4 DAYS 07/18 completed Not Available Not Available Not Available ibuprofen 800 mg tablet Take 1 tablet 3 times a day by oral route with meals for 30 days. 07/18 completed Not Available Not Available Not Available valacyclovi r 1 gram tablet TAKE 1 TABLET BY MOUTH EVERY DAY FOR 5 DAYS 04/01 completed Not Available Not Available Not Available hydrocodone 5 mg-acetamin ophen 325 mg tablet Take 1 tablet every 12 hours by oral route as needed. 08/07 completed Not Available Not Available Not Available meloxicam 15 mg tablet Take 1 tablet every day by oral route. 2014 active Not Available Not Available Not Avai lable prednisone 20 mg tablet TAKE 2 TABLETS BY MOUTH EVERY DAY FOR 5 DAYS active Not Available Not Available No t Available Ferrex 150 mg iron capsule 04/01 completed Not Available Not Available Not Available olanzapine 5 mg tablet TAKE 1 TABLET BY MOUTH EVERY NIGHT AT BEDTIME 07/18 completed Not Available Not Available Not Available naproxen 250 mg tablet TAKE 1 TABLET BY MOUTH TWICE DAILY NEEDED FOR PAIN 07/18 completed Not Available Not Available Not Available metronidazo le 500 mg tablet 4 tablets PO once 02/16 completed Not Available Not Available Not Available acetaminoph en 300 mg-codeine 30 mg tablet active Not Available Not Available Not Available ciprofloxac in 500 mg tablet TAKE 1 TABLET BY MOUTH TWICE DAILY FOR 7 DAYS 04/01 completed Not Available Not Available Not Available doxycycline monohydrate 100 mg tablet 04/01 completed Not Available Not Available Not Available tramadol 50 mg tablet Take 1 tablet every 12 hours by oral route as needed. active Not Available Not Available No t Available quetiapine 100 mg tablet 02/16 completed Not Available Not Available Not Available triamcinolo ne acetonide 0.1 % topical cream APPLY TO THE AFFECTED AREA TWICE DAILY FOR 10 DAYS 07/18 completed Not Available Not Available Not Available amoxicillin 500 mg tablet TAKE 1 TABLET BY MOUTH THREE TIMES DAILY FOR ACUTE OPIOID THERAPY DAYS 04/01 completed Not Available Not Available Not Available acyclovir 800 mg tablet TAKE 1 TABLET BY MOUTH TWICE DAILY FOR 5 DAYS 10/08 completed Not Available Not Available Not Available lamotrigine 25 mg tablet Take 1 tablet every day by oral route for 30 days. 04/01 completed Not Available Not Available Not Available amoxicillin 875 mg tablet TAKE 1 TABLET BY MOUTH EVERY 12 HOURS FOR 7 DAYS active Not Available Not Available No t Available baclofen 10 mg tablet Take 1 tablet every day by oral route in the evening. 2014 active Not Available Not Available Not Avai lable benzonatate 100 mg capsule 02/16 completed Not Available Not Available Not Available hydrocodone 7.5 mg-acetamin ophen 325 mg tablet 04/01 completed Not Available Not Available Not Available cephalexin 500 mg capsule 06/15 completed Not Available Not Available Not Available buspirone 10 mg tablet TK 1 T PO BID 07/18 completed Not Available Not Available Not Available prednisone 50 mg tablet TAKE 1 TABLET BY MOUTH DAILY 07/18 completed Not Available Not Available Not Available divalproex ER 500 mg tablet,exte nded release 24 hr 08/07 completed Not Available Not Available Not Available promethazin e 25 mg tablet 07/18 completed Not Available Not Available Not Available nicotine 21 mg/24 hr daily transdermal patch UNWRAP AND APPLY 1 PATCH ONTO THE SKIN EVERY 24 HOURS 07/18 completed Not Available Not Available Not Available Advair Diskus 500 mcg-50 mcg/dose powder for inhalation INHALE ONE PUFF BY MOUTH TWICE DAILY active Not Available Not Available No t Available diclofenac potassium 50 mg tablet Take 1 tablet twice a day by oral route. active Not Available Not Available No t Available gabapentin 300 mg capsule TAKE 1 CAPSULE BY MOUTH THREE TIMES DAILY 07/18 completed Not Available Not Available Not Available hydroxyzine HCl 25 mg tablet TAKE 2 TABLETS BY MOUTH TWICE DAILY NEEDED 07/18 completed Not Available Not Available Not Available fluticasone 100 mcg-salmete rol 50 mcg/dose blistr powdr for inhalation INHALE 1 PUFF BY MOUTH TWICE DAILY 07/18 completed Not Available Not Available Not Available methylpredn isolone 4 mg tablets in a dose pack DIRECTED 07/18 completed Not Available Not Available Not Available albuterol sulfate HFA 90 mcg/actuati on aerosol inhaler INHALE 2 PUFFS BY MOUTH EVERY 4 HOURS NEEDED FOR WHEEZING active Not Available Not Available No t Available SSD 1 % topical cream 04/01 completed Not Available Not Available Not Available fluticasone propionate 50 mcg/actuati on nasal spray,suspe nsion 07/18 completed Not Available Not Available Not Available naproxen 500 mg tablet 03/01 completed Not Available Not Available Not Available amoxicillin 875 mg-potassiu m clavulanate 125 mg tablet 06/15 completed Not Available Not Available Not Available nicotine 7 mg/24 hr daily transdermal patch Apply 1 patch every day by transderm al route for 14 days. 04/01 completed Not Available Not Available Not Available buspirone 15 mg tablet TAKE 1 TABLET BY MOUTH THREE TIMES DAILY 07/18 completed Not Available Not Available Not Available hydroxyzine pamoate 25 mg capsule 07/18 completed Not Available Not Available Not Available azithromyci n 500 mg tablet 07/18 completed Not Available Not Available Not Available cyclobenzap rine 5 mg tablet active Not Available Not Available Not Available bupropion HCl XL 150 mg 24 hr tablet, extended release TAKE 1 TABLET BY MOUTH EVERY DAY IN THE MORNING 07/18 completed Not Available Not Available Not Available Symbicort 160 mcg-4.5 mcg/actuati on HFA aerosol inhaler Inhale 2 puffs twice a day by inhalatio n route. 10/07 completed did not work Not Available Not Available Not Available Symbicort 80 mcg-4.5 mcg/actuati on HFA aerosol inhaler INHALE 2 PUFFS BY MOUTH TWICE DAILY 06/15 completed Not Available Not Available Not Available Dulera 200 mcg-5 mcg/actuati on HFA aerosol inhaler Inhale 2 puffs twice a day by inhalatio n route. 06/15 completed Not Available Not Available Not Available Andrade [facility] with Large Mask USE DIRECTED 07/18 completed Not Available Not Available Not Available Breo Ellipta 100 mcg-25 mcg/dose powder for inhalation Inhale 1 puff every day by inhalatio n route. 02/16 completed Not Available Not Available Not Available fluticasone 232 mcg-salmete rol 14 mcg/actuati on breath activated powdr Inhale 2 inhalatio ns every day by inhalatio n route for 30 days. 04/04 completed Not Available Not Available Not Available Qvar RediHaler 80 mcg/actuati on HFA breath activated aerosol Inhale 2 puffs twice a day by inhalatio n route for 30 days. 08/07 completed Not Available Not Available Not Available Wixela Inhub 250 mcg-50 mcg/dose powder for inhalation 07/18 completed Not Available Not Available Not Available BinaxNOW COVID-19 Ag Self Test kit TEST DIRECTED 07/18 completed Not Available Not Available Not Available Daily-Eliza (with folic acid) 400 mcg tablet 07/18 completed Not Available Not Available Not Available Vitals Date Recorded Body height Heart rate Respiratory rate Body mass index (BMI) Body weight Systolic blood pressure Diastolic blood pressure Provider Name and Address Organization Details Last Updated DateTime 0 160.02 cm 88 /min 16 /min 31.9 kg/m2 90116.0 3 g 132 mm[Hg] 80 mm[Hg] GABBI Gannon [facility] 0 12:31:25 Date Recorded Body height Provider Name an d Address Organization Details Last Updated DateTime 08/08/2019 160.02 cm Clau Toro MA [facility] 2019 10:48:43 Date Recorded Body height Provider Name an d Address Organization Details Last Updated DateTime 01/25/2020 160.02 cm Deborah Jinkarina Palmer [facility] 2019 14:35:52 Date Recorded Body height Body mass index (BMI) Body weight Body temperature Respiratory rate Oxygen saturation Oxygen saturation in Arterial blood by Pulse oximetry Heart rate Systolic blood pressure Diastolic blood pressure Provider Name and Address Organization Details Last Updated DateTime 4 160.02 cm 31.7 kg/m2 55170.0 8 g 99.3 [degF] 18 /min 93 % 93 % 78 /min 148 mm[Hg] 97 mm[Hg] Codi Gaitan MA [facility] 4 15:56:35 Social History Question Answer Notes LastModified by Organizat ion Details LastModified Time Tobacco Smoking Status Current Every Day Smoker Polly Napier MA null, [facility] 08/15/2014 10:10:10 Do You Have An Advance Directive? No Information not available 04/01/2020 What Is Your Level Of Alcohol Consumption? None Quit On 03/25/20 Information not available 04/01/2020 Are You Blind Or Do You Have Difficulty Seeing? No Information not available 04/01/2020 What Is Your Level Of Caffeine Consumption? Moderate Coffee Daily. Information not available 04/01/2020 In The 14 Days Before Symptom Onset, Have You Had Close Contact With A Laboratory-[facility] COVID-19 While That Case Was Ill? No Information not available 04/01/2020 In The 14 Days Before Symptom Onset, Have You Had Close Contact With A Person Who Is Under Investigation For COVID-19 While That Person Was Ill? No Information not available 04/01/2020 Have You Been To An Area Known To Be High Risk For COVID-19? No Information not available 04/01/2020 Are You Currently Employed? No Information not available 04/01/2020 Are You Deaf Or Do You Have Serious Difficulty Hearing? No Information not available 04/01/2020 What Type Of Diet Are You Following? REGULAR Information not available 04/01/2020 Do You Or Have You Ever Used E-cigarettes Or Vape? Never Used Electronic Cigarettes Information not available 08/08/2019 Are There Any Guns Present In Your Home? No Information not available 04/01/2020 Marital Status Single Informatio n not available 08/15/2014 What Was The Date Of Your Most Recent Tobacco Screening? 07/19/2023 Information not available 07/19/2023 What Is Your Current Pack Years? 20-29packyears Information not available 04/01/2020 What Is Your Relationship Status? Single Information not available 04/01/2020 Do You Use Your Seat Belt Or Car Seat Routinely? Yes Information not available 04/01/2020 Are You Sexually Active? No Information not available 04/01/2020 Do You Have Smoke And Carbon Monoxide Detectors In Your Home? Yes Information not available 04/01/2020 At What Age Did You Start Smoking Tobacco? 23 Information not available 04/01/2020 Are You Passively Exposed To Smoke? Yes Information no t available 04/01/2020 Do You Or Have You Ever Used Smokeless Tobacco? Never Used Smokeless Tobacco Information not available 08/08/2019 How Much Tobacco Do You Smoke? 0.5 PPD Information not available 08/15/2014 Do You Feel Stressed (tense, Restless, Nervous, Or Anxious, Or Unable To Sleep At Night)? [id number] Toss And Turns All Night Information not available 04/01/2020 Do You Use Any Illicit Or Recreational Drugs? Yes MJ Information not available 07/19/2023 Do You Use Sunscreen Routinely? Yes Information not available 04/01/2020 Has Tobacco Cessation Counseling Been Provided? Yes Information not available 04/01/2020 On What Date Was Tobacco Cessation Counseling Provided? 07/19/2023 Information not available 07/19/2023 How Many Years Have You Smoked Tobacco? 22 Information not available 08/15/2014 Do You Or Have You Ever Used Any Other Forms Of Tobacco Or Nicotine? No Information not available 04/01/2020 Sex: Female Functional Status Question Answer Note LastModified by Organizat ion Details LastModified Time Are you able to care for yourself? Yes Information not available 04/01/2020 What is your exercise level? Occasional Information not available 04/01/2020 Mental Status None recorded. Family History Relationship Description Onset Age of this Age Resolved Age Notes LastModified by Organization Details LastModified Time Mother Alcohol abuse Not available 2014 14:16:05 Mother Asthma Not available 12/26/2014 14:16:05 Mother Attention deficit hyperactivit y disorder Not available 12/26 14:16:05 Maternal Uncle Malignant neoplastic disease [email or web address] Not available 08/07 10:55:07 Notes:no changes reported03/12 03/31, 07/19/23 Medical History Condition Response Anxiety Disorder Y Other Y Asthma Y Allergies Y Gynecological History Statement/Question Response Abnormal Pap Y Flow Heavy Date of LMP 01/04/2020 STIs/STDs Y Duration of Flow (days) 7 Current Control Method None Age at First Child 23 Sexually Active? Y Menses Monthly Y Date of Last Pap Smear Sexual Problems? N LMP Approximate Obstetrics History GPAL:G 4 P 2 0 2 2 Type Value Full Term 2 Induced 1 Spontaneous 1 Living 2 Total 4 Past Encounters Encounter ID Performer Location Encounter Start Date Encounter Closed Date Diagnosis/Indication Diagnosis SNOMED-CT Code Diagnosis ICD10 Code Diagnosis Note [id number] [facility] Erazo [facility] [address] [place] [id number] 08/15/2014 09:46:04 08/15/2014 14:45:58 Low back pain [id number] Luciana Erazo [facility] [address] [place] [id number] 1 08/23/2014 11:26:29 08/23/2014 12:43:58 Low back pain 835692159 [id number] Polly Napier MA [facility] [address] [place] [id number] 09/12/2014 14:21:00 09/12/2014 16:28:04 Low back pain [id number] Luciana Erazo [facility] [address] [place] [id number] 1 10/18/2014 15:35:12 10/18/2014 16:35:51 Low back pain 280151047 Tobacco user [id number] Michelle Pringle MA [facility] [address] [place] [id number] 1 11/01/2014 16:10:07 11/01/2014 17:10:57 Shoulder pain 51201124 Low back pain 866448126 [id number] Polly Napier MA [facility] [address] [place] [address] 1 11/07/2014 16:12:31 11/07/2014 17:40:31 Low back pain [id number] Shoulder pain [id number] Sondra Erazo [facility] [address] [place] [address] 52304-524 1 11/27/2014 15:01:30 11/28/2014 17:53:33 Low back pain 211398669 M54.5 Cervical radiculopathy 97220474 M54.12 Tobacco user 852362385 Z 72.0 Asthma 062754103 J45.90 9 [id number] MD Castro Handley [facility] [address] [place] [address] 51389-351 1 12/12/2014 14:57:58 12/12/2014 17:37:13 Cervical radiculopathy 46465048 M54.12 Low back pain 696545484 M54.5 Asthma 515134059 J45.90 9 [id number] MD Castro Handley [facility] [address] [place] [address] 25509-547 1 12/26/2014 13:46:54 12/27/2014 09:06:18 Low back pain 347782736 M54.5 Shoulder pain 45826208 M 25.511 [id number] Leonel Loza MD [facility] [address] [place] [address] 36630-949 1 02/22/2015 14:20:05 02/22/2015 17:03:02 Upper respiratory infection 77401374 J06.9 Smoker 87766061 F17.200 [id number] Leonel Loza MD [facility] [address] [place] [address] 17446-592 1 05/01/2015 11:00:21 05/01/2015 17:06:08 Upper respiratory infection 46547978 J06.9 Cough 29285786 R05 Smoker 87359182 F17.200 Adult heal th examination 896070484 Z00.00 [id number] Leonel Loza MD [facility] [address] [place] [address] 88455-836 1 10/03/2015 15:40:45 10/07/2015 09:32:16 Tobacco user 800839701 Z72.0 Cough 94057416 R05 Asthma 769683584 J45.90 9 [id number] MD Susan Hair [address] [facility] [place] [address] 06/15/2017 14:47:48 06/16/2017 13:27:22 Venereal disease screening 799926620 Z11.3 Gynecologi c examination 95451781 Z01.419 CBE and pap smear performed. Screening mammography 24 970910 Z12.31 Breast tenderness 818953 07 N64.4 Encouraged patient to decrease caffeine intake. [id number] MD Susan Handley 14 IM [address] [facility] [place] [address] 06/22/2017 16:41:25 06/22/2017 17:55:18 Dyspnea 648483533 R06.02 Smoker 57330599 F17.255 [id number] MD Susan Hair 14 OB [address] [facility] [place] [address] 07/07/2017 16:32:37 07/08/2017 09:28:12 Herpes simplex type 2 infection 616356500 B00.9 Patient will call the office if she needs a prescripti on for an outbreak Human danielle lloma virus infection 240529548 R87.820 Repeat co-testing in 12 months. Infection by Trichomonas 96580967 A59.9 [id number] MD Susan Handley [address] [facility] [place] [address] 02/16/2018 10:42:43 02/21/2018 10:20:43 Numbness of hand 036027382 R20.0 Chronic ob structive pulmonary disease 39680671 J44.9 [id number] [facility] [address] [place] [address] [place] [address] 06/29/2018 12:16:14 06/30/2018 08:48:28 Irregular periods 96834039 N92.6 Pt encouraged to keep period tracker for next several months. Educated on things that can cause cycle to become irregular including but not limited to stress, exercise, weight loss, weight gain, major life changes etc. Pt verbalized understand ing. Will follow up in 3 months to discuss if meds are helping and if to continue on ocp therapy. Discussed false positive preg tests and miscarriag es. Pt does not want an hcg done today but may come in next week for one. [id number] MD Susan Handley [address] [facility] [place] [address] 03/01/2019 12:23:05 03/03/2019 16:56:31 Upper respiratory infection 50191684 J06.9 Chronic ob structive pulmonary disease 16801881 J44.9 [id number] MD Susan Handley [address] [facility] [place] [address] 08/08/2019 08:56:50 08/09/2019 20:24:55 Chronic obstructive pulmonary disease 06650240 J44.9 Under care of psychiatrist 368236916 Z76.89 Arthritis 5630083 M19.90 Chronic pain 21664404 G8 9.29 Anxiety 25954702 F41.9 Trying to give up smoking 456622460 Z72.0 Smoker 06865887 F17.997 [id number] RAZIA Capps [address] [place] [address] 01/25/2020 14:35:09 01/26/2020 11:20:43 Genital herpes simplex 74057187 A60.9 1. Reviewed transmissi on and prevention of STD's including condom use2. Reviewed medication use and instructio n on taking all meds to prevention occurences .3. Pt informed to have partner(s) informed and treated and avoid intercours e during breakouts. [id number] MD Susan Handley 14 IM [address] [facility] [place] [address] 04/01/2020 09:32:20 04/02/2020 20:26:58 Abdominal pain 55061953 R10.9 Under care of psychiatrist 073595688 Z76.89 Chronic ob structive pulmonary disease 05346959 J44.9 [id number] MD Susan Handley 14 IM [address] [facility] [place] [address] 07/19/2023 15:45:11 07/20/2023 13:38:50 Obesity 508428625 E66.8 Chronic ob structive pulmonary disease 87781432 J44.9 Needed refill on albuterol and Advair.93% RA - as expected Upper resp iratory infection 30857987 J06.9 Negative for COVID, Flu A+BGiven suspected strep throat (unfortuna tely no strep tests available in office) and L ear infection, will prescribe amoxicilli n.Patient also at higher risk for complicati ons given COPD. Acute exac erbation of chronic obstructive pulmonary disease 737852243 J44.1 Patient not currently in flare but reports that she has been feeling more short of breath and would like some steroids on hand should she worsen. CTAB on exam today. Infection of ear 3982868 01 H66.92 Amoxicilli n prescribed as above. Elevated blood-pressure reading without diagnosis of hypertension 482414371 R03.0 148/97Like ly due to acute infection/ illnessWil l continue to monitor Health Concerns Section Related Observation LastModified by Organization Detai ls LastModified Time None Recorded Concern Status LastModified by Organization Details LastModified Time None Recorded Advance Directives Directive N: Payers Encounter Date Sequence Insurance Name Policy Number Policy Conway Covered Member ID Conway Member ID Guarantor Name 03/01/2019 1 [facility] (MEDICAID HMO) [id number] Izzy Tavares [id number] Izzy Tavares 08/08/2019 1 [facility] (MEDICAID HMO) [id number] Izzy Tavares [id number] Izzy Tavares 01/25/2020 1 [facility] (MEDICAID HMO) [id number] Izzy Tavares [id number] Izzy Tavares 04/01/2020 1 [facility] (MEDICAID HMO) [id number] 0003 Izzy Tavares [id number] Izzy Tavares 07/19/2023 1 [facility] (MEDICAID HMO) [id number] 0003 Izzy Tavares [id number] Izzy Tavares Notes Date Note Type Note Provider Name and Address Organization Details Recorded Time 03/01/2019 text/html Pt presents with sxs of a URI. Also has disability paperwork to address for her housing. Leonel Loza MD Attn: Accounting, [address] [place], [address], [facility] 03/03/2019 13:51:35 08/08/2019 text/html Phone visit was to begin at 10:16 a.m.--LMOV. Phone visit began at 1:23 p.m. She is needing refills of certain medications. Leonel Loza MD Attn: Accounting, [address] [place], [address], [facility] 08/09/2019 14:42:26 01/25/2020 text/html OB ProblemReport ed bypatient.Location:vag maureen Onset/Timing:abrupt Duration:persistent Severity:severe Alleviating Factors:none Aggravating Factors:none Associated Symptoms:no abdominal pain; no cramping; no bleeding; no vaginal discharge; no vaginal/vulvar itching or irritation; no dysuria; no frequency; no urgency; no hematuria; no fever; no nausea; no emesis; no constipation; no diarrhea/loose stool; no edema; no visual changes; no headache; no dizziness phone visit. needs meds for herpes outbreak. states sores started 6 days ago. does not want valtrex and states she does not want preventative. no other complaints. Beronica Jani, DIRECTOR OF RADIO SERVICES-BC Attn: Accounting,[address] [facility], [place], [address], [facility] 01/25/2020 14:44:25 04/01/2020 text/html Phone visit jamee argueta at 11:30 a.m. As per intake note, pt describes GI symptoms and would like to be evaluated by a GI specialist. Leonel Loza MD Attn: Accounting,[address] [facility], [place], [address], [facility] 04/02/2020 14:23:25 07/19/2023 text/html 48 yo female who presents with URI symptoms URI sxsSore throat, L ear pain, swollen tonsilsOngoing for about 10 daysHas been taking old amoxicillin and feels like it is workingSubjective fevers at home, chillsNearly lost her voice COPDneeds refill on advair and albuterol Leonel Loza MD Attn: Accounting,[address] [facility], [place], [address], [facility] 07/20/2023 08:05:09 OBGyn Episode No OBEpisode recorded.
--- OUTSIDE RECORDS SUMMARY | 2024-04-17 14:08 | XMS_ITS ---
Author Organization [facility] Address [address] [place] [address] Care Team Providers Care Rn Camp Name Role Phone Joo Rasmussen Primary Care Provider REASON FOR VISIT Refills Social History Sex Assigned At : Social History Observation Description Sex Assigned At Female Encounters Encounter Location Date Provider Diagnosis [address] [place] [address] 03/31/2024 Joo Rasmussen Plan Of Treatment No Information Progress Notes * Izzy MILTON LDOB: [birth year] (49 yo F)Acc No.[id number]:03/31/2024 Patient: Stephen CIDIzzy :1975 A ge:49 Y S ex:Female Address:[address] [place] [address], [phone] * true * Date: Generated for Printi ng/Faaveryg/eTransmitting on: 0 04/17/2024 02:08 PM CDT
--- OUTSIDE RECORDS SUMMARY | 2024-04-17 14:08 | XMS_ITS | Referral Summary ---
Author Organization [facility] Address [address] [place] [address] Care Team Providers Care Manufacturing Machine Operator Name Role Phone Unavailable Primary Care Provider Unavailabl e Source Comments [facility],non-owned Affiliates and Associated Physician Practices is amultiple site organization consisting of ambulatory clinics and hospital sitesin [place], [place], [place] and [place]. This disclosure is being madepursuant to the Care Everywhere program and may not contain all information available regarding this patient. Last updated 17.[facility] [employer] Allergies No known active allergies Medications * [...] disorder, most recent episode depresse d 06/02/2017 Social History Tobacco Use Types Packs/Day Years Used Date Smoking Tobacco: Every Day Cigarettes 1 Smokeless Tobacco: Never Tobacco Cessation:Ready to Q [...] Mass Index 27.23 06/03/2017 12:16 AM CDT Functional Status Functional Status Response Date of Assess ment Is person deaf or have serious hearing difficult y? No 06/08/2017 Is person blind or have serious difficulty seein g? No 06/08/2017 Does person have serious dif ficulty walking/climbing stairs? No 06/08/2017 Does person have difficulty dressing/bathing? No 06/08/2017 Does person have difficulty doing errands alone? No 06/08/2017 Cognitive Status Response Date of Assessm ent Does person have difficulty concentrating/remembering/making decisions? No 06/08/2017 Plan of Treatment Not on file Procedures Procedure Name Priority Date/Time Associated Diagnosis Comments LIPID PROFILE Routine 06/03/2017 12:30 AM CDT CYTOLOGY SMEAR PAP THIN PREP KAYA 04/11/1998 10:29 AM INFORMATION ENGINEER from Last 3 Months or Most Recently Relevant to Health Maintenance Results * LIPID PROFILE (06/03/2017 12:30 AM CDT) Cholesterol 121 <200 mg/dL 06/03/2017 1:10 AM CDT [facility] Triglycerides 63 <150 mg/dL 06/03/2017 1:10 AM CDT [facility] HDL Cholesterol 56 >40 mg/dL 8 1:10 AM CDT [facility] LDL Calculated 52 <130 mg/dL 06/03/2017 1:10 AM CDT [facility] VLDL Calculated 13 <=30 mg/dL 8 1:10 AM CDT [facility] Chol HDL Ratio 2.2 <4.5 06/03/2017 1:10 AM CDT [facility] LDL/HDL Ratio 0.9 <5.0 06/03/2017 1:10 AM CDT [facility] Blood BLOOD SPECIMEN / Unknown Venipuncture / Unknown 06/03/2017 12:30 AM CDT 06/03/2017 12:44 AM CDT Ricardo Rice MD LAB - CHEMISTRY [facility] Organization Address City/State/[facility] Co de Phone Number [facility] [address] [place], [place] [id number] * CYTOLOGY SMEAR PAP THIN PREP (04/11/1998 10:29 AM INFORMATION ENGINEER) Result CASE NUMBER [id number] Comment: ORDERING PHYSICIAN KETAN STOCK SPECIMEN TYPE PAP Smear Date 04/11/1998 Procedure Cervical/Endocervical, 1 Vial for Thin Prep Received Specimen Adequacy Satisfactory for Evaluation Categorization Within Normal Limits Snomed. 04/16/1998 1527 <1> Testing Coordinator Kristian Yan (ASCP) PAP Footnote The PAP smear is only a screening procedure to aid in the detection of cervical cancer and its precursors. It is not a diagnostic procedure and should not be used as the sole means to detect cervical cancer. Both false negative and false positive results have been experienced. MISCELLANEOUS SAMPLES / Unknown 04/11/1998 10:29 AM INFORMATION ENGINEER 04/15/1998 10:29 AM INFORMATION ENGINEER Historical Provider LAB - PATHOLOGY/C YTOLOGY ORDERABLES from Last 3 Months or Most Recently Relevant to Health Maintenance Advance Directives * Full Code (Latest Code Status on File) Date Activated Date Inactivated Comments 06/02/2017 11:28 PM 06/08/2017 12:13 PM
--- OUTSIDE RECORDS SUMMARY | 2024-04-17 14:08 | XMS_ITS | Patient Health Summary ---
Author Organization [facility] Address [address] [place] [address] Care Team Providers Care Entertainment Dancer Name Role Phone Unavailable Primary Care Provider Unavailabl e Note from [facility],non-owned Affiliates and Associated Physician Practices is amultiple site organization consisting of ambulatory clinics and hospital sitesin [place], [place], [place] and [place]. This disclosure is being madepursuant to the Care Everywhere program and may not contain all information available regarding this patient. Last updated 17.[facility] [employer] Allergies No known active allergies Medications * Be aware that medications may not be up to date on this document. Alwaysverify current medications with the patient. * albuterol HFA (PROVENTIL;VENTOLIN;PROAIR) 108 (90 BASE) MCG/ACT inhaler Inhale 2 puffs by mouth every 6 hours as needed for Shortness of Breath or Wheezing Reasons: Chronic Obstructive Lung Disease * fluticasone-salmeterol (ADVAIR) 250-50 MCG/DOSE inhaler Inhale 1 puff by mouth 2 times daily Reasons: Chronic Obstructive Lung Disease * gabapentin (NEURONTIN) 300 MG capsule(Started 06/07/2017) Take 1 capsule by mouth 3 times daily Reasons: Agitation 1 refill remaining * QUEtiapine (SEROQUEL) 300 MG tablet(Started 06/07/2017) Take 1 tablet by mouth at bedtime Reasons: Depressive Phase of Manic-Depression 1 refill remaining * nicotine (NICODERM CQ) 21 MG/24HR patch(Started 06/07/2017) Apply 1 patch to skin once daily Remove old patch before applying new patch. Reasons: Nicotine Addiction Active Problems Problem Noted Date Diagnosed Date [...] Mass Index 27.23 06/03/2017 12:16 AM CDT Procedures * SARS-COV-2 (COVID-19) IN HOUSE(Performed 08/08/2019) * XR CHEST 1VW PORTABLE(Performed 06/03/2017) Performed for Chronic obstructive pulmonary disease with acute exacerbation (HCC) * TSH(Performed 06/03/2017) * RPR(Performed 06/03/2017) * LIPID PROFILE(Performed 06/03/2017) * HEMOGLOBIN A1C(Performed 06/03/2017) * COMPREHENSIVE METABOLIC PANEL(Performed 06/03/2017) * CBC W AUTO DIFFERENTIAL(Performed 06/03/2017) * URINE MICROSCOPIC ONLY(Performed 06/03/2017) * URINALYSIS REFLEX TO MICROSCOPIC NO CULTURE(Performed 06/03/2017) * URINE DRUG SCREEN IMMUNOASSAY(Performed 06/03/2017) * HCG URINE QUALITATIVE(Performed 06/03/2017) * CYTOLOGY SMEAR PAP THIN PREP(Performed 04/11/1998) Results * SARS-COV-2 (COVID-19) IN HOUSE (08/08/2019 6:15 PM CDT) COVID-19 PCR Not detected Not detected, Invalid 08/09/2019 7:25 PM CDT [facility] Microbiology SPECIMEN FROM NASOPHARYNGEAL STRUCTURE / Unknown Collection / Unknown 08/08/2019 6:15 PM CDT 08/09/2019 11:59 AM CDT Narrative [facility] - 08/09/2019 7:25 PM CDT This Real Time RT-PCR assay was developed and its performance characteristics determined by [facility]. This test has been authorized by the Food and Drug administration (FDA)under an Emergency Use Authorization (EUA). This test has been validated in accordance with the FDA's guidance document Policy for Diagnostic Testing in Laboratories Certified to perform High Complexity Testing under CLIA prior to Emergency Use Authorization for Coronavirus Disease-2019 during the Public Health Emergency issued on April 08, 2019. FDA independent review of this validation is pending. This test is only authorized for the duration of time the declaration that circumstances exist justifying the authorization of emergency use of in vitro diagnostic tests for detection of SARS-CoV-2 virus and/or diagnosis of COVID-19 infection under section 564(b)(1) of the Act, 21 U.S.C 360bbb-3 (b)(1), unless the authorization is terminated or revoked sooner. Michael Hills MD LAB - MICROBIOLOGY ORDERABLES [facility] [address] [place], [place] [address], [facility] [phone] * XR CHEST 1VW PORTABLE (06/03/2017 12:39 PM CDT) Anatomical Region Laterality Modality Chest Radiographic Addie ging 06/03/2017 12:5 2 PM CDT Impressions 06/03/2017 12:52 PM CDT No acute disease. Narrative 06/03/2017 12:52 PM CDT AP Portable Chest Indication: COPD, shortness of breath Findings: A single portable view of the chest shows the lungs are clear. Mediastinal contour and heart size are within normal limits. Pulmonary vascularity is unremarkable. Procedure Note Trinity Hernandez MD - 06/03/2017 AP Portable Chest Indication: COPD, shortness of breath Findings: A single portable view of the chest shows the lungs are clear. Mediastinal contour and heart size are within normal limits. Pulmonary vascularity is unremarkable. IMPRESSION No acute disease. Monico Joya MD DIAGNOSTIC IMAGING ORDERABLES * RPR (06/03/2017 12:30 AM CDT) [facility] RPR Non Reactive Non Reactive 06/03/2017 10:29 PM CDT [facility] Blood BLOOD SPECIMEN / Unknown Venipuncture / Unknown 06/03/2017 12:30 AM CDT 06/03/2017 12:44 AM CDT Ricardo Rice MD LAB - CHEMISTRY BENEDICT LANDIN Performing Organization Address [facility] Co de Phone Number [facility] [id number] [place] [phone] * HEMOGLOBIN A1C (06/03/2017 12:30 AM CDT) [facility] Hemoglobin A1c 5.7 4.2 - 6.3 % 06/03/2017 1:21 AM CDT [facility] Estimated Average Glucose 117 mg/dL 06/03/2017 1:21 AM CDT [facility] Whole Blood BLOOD SPECIMEN WITH EDTA / Unknown Venipuncture / Unknown 06/03/2017 12:30 AM CDT 06/03/2017 12:44 AM CDT Ricardo Rice MD LAB - CHEMISTRY BENEDICT LANDIN Performing Organization Address [facility] Co de Phone Number [facility] [address] [place] [address] * (ABNORMAL) CBC W AUTO DIFFERENTIAL (06/03/2017 12:30 AM CDT) [facility] WBC 8.9 4.4 - 10.7 x10E9/L 06/03/2017 12:48 AM CDT [facility] WBC Corrected x10E9/L 06/03/2017 12:48 AM CDT [facility] RBC 4.63 3.80 - 5.20 x10E12/L 06/03/2017 12:48 AM CDT [facility] Hemoglobin 11.6(L) 12.0 - 15.6 gm/dL 06/03/2017 12:48 AM CDT [facility] Hematocrit 37.1 35.9 - 45.5 % 06/03/2017 12:48 AM CDT [facility] MCV 80.1(L) 80.7 - 98.3 fl 06/03/2017 12:48 AM CDT [facility] MCH 25.1(L) 26.7 - 34.0 pg 06/03/2017 12:48 AM CDT [facility] MCHC 31.3 30.8 - 35.9 gm/dL 06/03/2017 12:48 AM CDT [facility] Platelet Count 306 153 - 416 x10E9/L 06/03/2017 12:48 AM CDT [facility] RDW-CV 15.8(H) 12.1 - 14.9 % 06/03/2017 12:48 AM CDT [facility] MPV 9.7 9.4 - 12.9 fl 06/03/2017 12:48 AM CDT [facility] Neutrophils % 44.5 44.0 - 73.0 % 06/03/2017 12:48 AM CDT [facility] Lymphocytes % 44.2(H) 20.0 - 43.0 % 06/03/2017 12:48 AM CDT [facility] Monocytes % 9.3 5.0 - 13.0 % 06/03/2017 12:48 AM CDT [facility] Eosinophils % 1.0 0.0 - 6.0 % 06/03/2017 12:48 AM CDT [facility] Basophils % 0.8 0.0 - 2.0 % 06/03/2017 12:48 AM CDT [facility] Immature Granulocytes 0.2 0 - 1 % 06/03/2017 12:48 AM CDT [facility] Neutrophil Absolute 3.96 2.01 - 7.14 x10E9/L 06/03/2017 12:48 AM CDT [facility] Lymphocytes Absolute 3.94 1.07 - 3.94 x10E9/L 06/03/2017 12:48 AM CDT [facility] Monocytes Absolute 0.83 0.26 - 1.07 x10E9/L 06/03/2017 12:48 AM CDT [facility] Eosinophils Absolute 0.09 0 - 0.47 x10E9/L 06/03/2017 12:48 AM CDT [facility] Basophils Absolute 0.07 0 - 0.08 x10E9/L 06/03/2017 12:48 AM CDT [facility] Immature Granulocytes Absolute 0.02 0.00 - 0.06 x10E9/L 06/03/2017 12:48 AM CDT [facility] nRBC Auto 0 /100 WBC 06/03/2017 12:48 AM CDT [facility] Blood BLOOD SPECIMEN / Unknown Venipuncture / Unknown 06/03/2017 12:30 AM CDT 06/03/2017 12:44 AM CDT Ricardo Rice MD LAB - HEMATOLOGY ORD ERABLES [facility] [address] [place] [address] * (ABNORMAL) COMPREHENSIVE METABOLIC PANEL (06/03/2017 12:30 AM CDT) Glucose 82 74 - 106 mg/dL 06/03/2017 1:08 AM [facility] Sodium 140 136 - 145 mmol/L 06/03/2017 1:08 AM [facility] Potassium 3.9 3.5 - 5.1 mmol/L 06/03/2017 1:08 AM [facility] Chloride 106 98 - 107 mmol/L 06/03/2017 1:08 AM [facility] CO2 28 22 - 31 mmol/L 06/03/2017 1:08 AM [facility] Calcium 8.4(L) 8.5 - 10.1 mg/dL 06/03/2017 1:08 AM [facility] Anion Gap 6(L) 8 - 16 mmol/L 06/03/2017 1:08 AM [facility] BUN 16 7 - 21 mg/dL 06/03/2017 1:08 AM [facility] Creatinine 0.83 0.50 - 1.30 mg/dL 06/03/2017 1:08 AM [facility] Alkaline Phosphatase 43 38 - 126 U/L 06/03/2017 1:08 AM [facility] ALT 15 13 - 61 U/L 06/03/2017 1:08 AM [facility] AST 8 5 - 40 U/L 06/03/2017 1:08 AM [facility] Protein Total 7.4 6.4 - 8.2 gm/dL 06/03/2017 1:08 AM CDT [facility] Albumin 3.7 3.4 - 5.0 gm/dL 06/03/2017 1:08 AM CDT [facility] Bilirubin Total 0.2 0.2 - 1.0 mg/dL 06/03/2017 1:08 AM CDT [facility] eGFR by MDRD >60 >60 mL/min/1.7 3m2 06/03/2017 1:08 AM CDT [facility] eGFR by MDRD >60 >60 mL/min/1.7 3m2 06/03/2017 1:08 AM CDT [facility] Blood BLOOD SPECIMEN / Unknown Venipuncture / Unknown 06/03/2017 12:30 AM CDT 06/03/2017 12:44 AM CDT Ricardo Rice MD LAB - CHEMISTRY BENEDICT LANDIN Performing Organization Address City/[facility]/ZIP Co de Phone Number [facility] [address] [place], [place] [phone] * TSH (06/03/2017 12:30 AM CDT) TSH 2.05 0.358 - 3.740 uIU/mL 06/03/2017 1:16 AM CDT [facility] Blood BLOOD SPECIMEN / Unknown Venipuncture / Unknown 06/03/2017 12:30 AM CDT 06/03/2017 12:44 AM CDT Ricardo Rice MD LAB - CHEMISTRY BENEDICT LANDIN [facility] [address] [place] [address] * LIPID PROFILE (06/03/2017 12:30 AM CDT) Cholesterol 121 <200 mg/dL 06/03/2017 1:10 AM CDT [facility] Triglycerides 63 <150 mg/dL 06/03/2017 1:10 AM CDT [facility] HDL Cholesterol 56 >40 mg/dL 8 1:10 AM CDT [facility] LDL Calculated 52 <130 mg/dL 06/03/2017 1:10 AM CDT [facility] VLDL Calculated 13 <=30 mg/dL 8 1:10 AM CDT [facility] Chol HDL Ratio 2.2 <4.5 06/03/2017 1:10 AM CDT [facility] LDL/HDL Ratio 0.9 <5.0 06/03/2017 1:10 AM CDT [facility] Blood BLOOD SPECIMEN / Unknown Venipuncture / Unknown 06/03/2017 12:30 AM CDT 06/03/2017 12:44 AM CDT Ricardo Rice MD LAB - CHEMISTRY SLYE URVASHI [facility] Organization Address City/State/ZIP Co de Phone Number [facility] [address] [place] [address] * (ABNORMAL) URINALYSIS REFLEX TO MICROSCOPIC NO CULTURE (06/03/2017 12:29 AM CDT) Color UA Yellow Straw, Yellow 06/03/2017 12:54 AM CDT [facility] Clarity UA Cloudy(A) Clear 06/03/2017 12:54 AM CDT [facility] Glucose UA Negative Negative 06/03/2017 12:54 AM CDT [facility] Bilirubin UA Negative Negative 06/03/2017 12:54 AM CDT [facility] Ketone UA Trace(A) Negative 06/03/2017 12:54 AM CDT [facility] Specific [place] UA 1.027 1.005 - 1.030 06/03/2017 12:54 AM CDT [facility] Blood UA Negative Negative 06/03/2017 12:54 AM CDT [facility] pH UA 6.0 5.0 - 8.0 pH 06/03/2017 12:54 AM CDT [facility] Protein UA Negative Negative 06/03/2017 12:54 AM CDT [facility] Urobilinogen UA 2.0(A) Negative mg/dL 06/03/2017 12:54 AM CDT [facility] Nitrite UA Negative Negative 06/03/2017 12:54 AM CDT [facility] Leukocyte UA 1+(A) Negative 06/03/2017 12:54 AM CDT [facility] Urine Microscopy Urine microscopy to follow 06/03/2017 12:54 AM CDT [facility] Urine URINE SPECIMEN OBTAINED BY CLEAN CATCH PROCEDURE / Unknown Collection / Unknown 06/03/2017 12:29 AM CDT 06/03/2017 12:45 AM CDT Narrative [facility] - 06/03/2017 12:54 AM CDT Ricardo Rice MD LAB - URINALYSIS ORD ERABLES Performing Organization Address City/[facility]/ZIP Co de Phone Number [facility] [address] [place] [address] * HCG URINE QUALITATIVE (06/03/2017 12:29 AM CDT) Pathologist [facility] hCG Qualitative Urine Negative Negative 06/03/2017 12:51 AM CDT [facility] Urine URINE / Unknown Collection / Unknown 06/03/2017 12:29 AM CDT 06/03/2017 12:45 AM CDT Ricardo Rice MD LAB - URINALYSIS ORD ERABLES Performing Organization Address City/[facility] Co de Phone Number [facility] [address] [place] [address] * (ABNORMAL) URINE MICROSCOPIC ONLY (06/03/2017 12:29 AM CDT) RBC UA 0-5 0-5, None Seen # /hpf 06/03/2017 12:59 AM CDT [facility] WBC UA 11-20(A) 0-5, None Seen # /hpf 06/03/2017 12:59 AM CDT [facility] Hyaline Casts 3-5(A) None Seen, 0-2 # /lpf 06/03/2017 12:59 AM CDT [facility] Bacteria UA None Seen None Seen 06/03/2017 12:59 AM CDT [facility] Squamous Epithelial Cells >20(A) None Seen, 0-2, 3-5 /hpf 06/03/2017 12:59 AM CDT [facility] Mucus UA 3+ /LPF 06/03/2017 12:59 AM CDT [facility] Urine URINE SPECIMEN OBTAINED BY CLEAN CATCH PROCEDURE / Unknown Collection / Unknown 06/03/2017 12:29 AM CDT 06/03/2017 12:45 AM CDT [facility] - 06/03/2017 12:59 AM CDT Ricardo Rice MD LAB - URINALYSIS ORD ERABLES [facility] [address] [place] [address] * (ABNORMAL) DRUG SCREEN TOX URINE PANEL (06/03/2017 12:29 AM CDT) [facility] Amphetamines Screen Urine Not Detected Not Detected 06/03/2017 1:03 AM CDT [facility] Barbiturates Screen Urine Not Detected Not Detected 06/03/2017 1:03 AM CDT [facility] Benzodiazepines Screen Urine Not Detected Not Detected 06/03/2017 1:03 AM CDT [facility] Cannabinoids Screen Urine Not Detected Not Detected 06/03/2017 1:03 AM CDT [facility] Cocaine Screen Urine Detected(A) Not Detected 06/03/2017 1:03 AM CDT [facility] Methadone Screen Urine Not Detected Not Detected 06/03/2017 1:03 AM CDT [facility] Opiate Screen Urine Not Detected Not Detected 06/03/2017 1:03 AM CDT [facility] Phencyclidine Screen Urine Not Detected Not Detected 06/03/2017 1:03 AM CDT [facility] Urine URINE / Unknown Collection / Unknown 06/03/2017 12:29 AM CDT 06/03/2017 12:45 AM CDT [facility] - 06/03/2017 1:03 AM CDT This drug screen is designed for MEDICAL purposes only. It is not to be used for legal purposes, including but not limited to worker's comp, police investigations, occupational issues, child custody, etc. Any positive result is only presumptive and must be confirmed with a separate confirmatory test ordered by the physician. Drug Screening Test Cutoff Values: AMPHETAMINES 1000 ng/mL BARBITURATES 200 ng/mL BENZODIAZEPINES 200 ng/mL CANNABINOIDS(THC) 50 ng/mL COCAINE 300 ng/mL METHADONE 300 ng/mL OPIATES 300 ng/mL PHENCYCLIDINE(PCP)25 ng/mL Ricardo Rice MD LAB - URINE CHEMISTR Y ORDERABLES [facility] [address] [place] [address] * CYTOLOGY SMEAR PAP THIN PREP (04/11/1998 10:29 AM MECHANIC'S ASSISTANT) Result CASE NUMBER [id number] Comment: ORDERING PHYSICIAN KETAN STOCK SPECIMEN TYPE PAP Smear Date 04/11/1998 Procedure Cervical/Endocervical, 1 Vial for Thin Prep Received Specimen Adequacy Satisfactory for Evaluation Categorization Within Normal Limits Snomed. 04/16/1998 1527 <1> Dip Unit Operator Kristian Yan (ASCP) PAP Footnote The PAP smear is only a screening procedure to aid in the detection of cervical cancer and its precursors. It is not a diagnostic procedure and should not be used as the sole means to detect cervical cancer. Both false negative and false positive results have been experienced. MISCELLANEOUS SAMPLES / Unknown 04/11/1998 10:29 AM MECHANIC'S ASSISTANT 04/15/1998 10:29 AM MECHANIC'S ASSISTANT Historical Provider LAB - PATHOLOGY/C YTOLOGY ORDERABLES
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
--- OUTSIDE RECORDS SUMMARY | 2024-04-17 14:08 | XMS_ITS | Encounter Summary ---
Author Organization [facility] Address [address] [facility] [place] [address] Care Team Providers Care New Autos Delivery Driver Name Role Phone Unavailable Primary Care Provider Unavailabl e Encounter Details Date Type Department Care Team (Late st Contact Info) Description 08/09/2019 Lab Requisition [facility] [address] [place] [address] Michael Hills MD Social History Tobacco Use Types Packs/Day Years Used Date Smoking Tobacco: Every Day Cigarettes 1 26 Smokeless Tobacco: Never Alcohol Use Standard Drinks/Week Comments No 0 (1 standard drink = 0.6 oz pur e alcohol) Sex and Gender Information Value Date Recorded Sex Assigned at Not on file Gender Identity Not on file Sexual Orientation Not on file documented as of this encounter Functional Status Functional Status Response Date of [...] person have difficulty concentrating/remembering/making decisions? No 06/08/2017 documented as of this encounter Plan of Treatment Not on file documented as of this encounter Procedures Procedure Name Priority Date/Time Associated Diagnosis Comments SARS-COV-2 (COVID-19) IN HOUSE Routine 08/08/2019 6:15 PM CDT documented in this encounter Results * SARS-COV-2 (COVID-19) IN HOUSE (08/08/2019 6:15 PM CDT) COVID-19 PCR Not detected Not detected, Invalid 08/09/2019 7:25 PM CDT [facility] Microbiology SPECIMEN FROM NASOPHARYNGEAL STRUCTURE / Unknown Collection / Unknown 08/08/2019 6:15 PM CDT 08/09/2019 11:59 AM CDT Narrative [facility] - 08/09/2019 7:25 PM CDT This Real Time RT-PCR assay was developed and its performance characteristics determined by [facility]. This test has been authorized [...] Michael Hills MD LAB - MICROBIOLOGY ORDERABLES [facility] [address] [place] [address], [facility] [phone] documented in this encounter Visit Diagnoses Not on filedocumented in this encounter Additional Health Concerns Infection Onset Date Last Indicated Resolved Time COVID-19 Under Investigation 08/08/2019 08/08/2019 08/09/2019 7:25 PM CDT documented as of this encounter
--- OUTSIDE RECORDS SUMMARY | 2024-04-17 14:08 | XMS_ITS | Referral Summary ---
Author Organization [facility] Address [address] [place] [address] Care Team Providers Care Oracle Brm Developer Name Role Phone Leonel Clemons MD Primary Care Provider [phone] Anju Fitzgerald Unavailable Unavailable Allergies No known [...] are. Will need to confirm with pharmacy ([facility]) in the a.m. when they are open. Patient has a new psychiatrist she to establish with but she has not seen them yet. Microcytic anemia 11/24/2017 Assessment & Plan (11/24/2017 2:59 AM CDT): Patient still menstruating. Will check iron profile. Continue to monitor. COPD (chronic obstructive pulmonary disease) Assessment & Plan (11/24/2017 3:00 AM CDT): Will continue breathing treatment History of substance abuse Social History Tobacco Use Types Packs/Day Years [...] on file Legal Sex Female 12:43 AM INFORMATION TECHNOLOGY MANAGER Gender Identity Not on file Sexual Orientation [...] 07/19/2022 1:02 AM CDT Plan of Treatment Not on file Procedures Procedure Name Priority Date/Time Associated Diagnosis Comments SCREENING MAMMOGRAM BILATERAL W BENTLEY Schedule Routine, Read Routine (OP Routine) 09/18/2021 11:00 AM CDT Screening mammogram, encounter for HEPATITIS C ANTIBODY STAT 03/21/2020 7:51 PM INFORMATION TECHNOLOGY MANAGER from Last 3 Months or Most Recently [...] * Hepatitis C antibody (03/21/2020 7:51 PM INFORMATION TECHNOLOGY MANAGER) Hep C Ab Nonreactive Nonreactive [facility] [...] last revised on 2019. Testing performed by: [facility], [address] [place] [address], [place]., [address] Blood specimen (specimen) 03/21/2020 7:51 PM INFORMATION TECHNOLOGY MANAGER 03/22/2020 9:26 AM INFORMATION TECHNOLOGY MANAGER us Mariano Roach MD LAB MICROBIOLOGY - GENERAL OR DERABLES Final Result [facility] ([place]) 1 [facility] Department [place] [address] from Last 3 Months or Most Recently Relevant to Health Maintenance Insurance [facility] Advance Directives For more information, please contact: [phone] * Full Code (Latest Code Status on File) Date Activated Date Inactivated Comments 03/21/2020 6:59 PM 03/24/2020 3:15 PM * Full Code Date Activated Date Inactivated Comments 11/24/2017 2:55 AM 11/25/2017 5:38 PM Healthcare Agents on File Name Relationship Healthcare Agent Relationshi p Communication Temi Chang Mother Health Care Agent Care Teams Oracle Brm Developer Relationship Specialty Start Date End Date Leonel Clemons MD PCP - General 02/10/18 Anju Fitzgerald Plater Supervisor Addiction Medicine 03/22/20
--- OUTSIDE RECORDS SUMMARY | 2024-04-17 14:10 | XMS_ITS | CONTINUITY OF CARE DOCUMENT ---
Author Name shaun dunn Address Unknown Organization [facility] Address [id number] [place] [address] [address] [place] [address] Phone [phone] Care Team Providers Care Access Assoc Name Role Phone Mathieu Morse MD Unavailable CLAY LUBIN MD Unavailable [phone] INSURANCE PROVIDERS Payer name Policy type / Coverage type Kyra red green party ID [employer] MEDICAID Medicaid [id number]
== END 2024-04-17 13:25 | disposition home or self-care (01) ==
PROVIDERS: Emergency Provider Registered Nurse; PCP Family Medicine
DX: J44.1 Chronic obstructive pulmonary disease with (acute) exacerbation (principal); Z20.822 Contact with and (suspected) exposure to COVID-19; F17.210 Nicotine dependence, cigarettes, uncomplicated
CPT/HCPCS: 71046; 87426; 87804; 99213; G0463

== ENCOUNTER 2024-12-23 15:01 | Emergency (ER) | payer OTHER, SELFPAY ==
[2024-12-23 15:06] VITALS: BP 147/89; PULSE 87; RESP 20; TEMP 36.6; O2SAT 98
--- NOTE | 2024-12-23 15:10 | ED_ITS ---
HPI - Dental/Oral General Chief complaint: Dental/Oral Stated complaint: toothache Time Seen by Provider: 12/23/24 15:10 Source: patient, RN notes reviewed and old records reviewed Mode of arrival: ambulatory Limitations: no limitations History of Present Illness HPI Narrative: 49-year-old female presents to the [facility] with right lower dental pain and swelling. Symptoms started 10 days ago. Has been using salt water. extraction of the tooth is scheduled for Dec in [facility] at [facility] dental Related Data Home Medications ?Medication ?Instructions ?Recorded ?Confirmed ?Last Taken ?Type fluticasone 500 mcg-salmeterol 50 See Rx Instructions .Route .COMPLEX 08/05/22 01/13/24 Unknown History mcg/dose blistr powdr for inhalation (Advair Diskus) Allergies Allergy/AdvReac Type Severity Reaction Status Date / Time No Known Allergies Allergy Verified 12/23/24 15:09 Review of Systems 2 Review of Systems: All systems reviewed & are unremarkable except as noted in HPI and below Constitutional: Constitutional: Reports no additional constitutional complaints ENT: Reports as per HPI and Reports dental pain Cardiovascular: Cardiovascular: Reports no additional cardiovascular complaints, Denies chest pain and Denies dyspnea Respiratory: Respiratory: Reports no additional respiratory complaints, Denies chest congestion, Denies cough and Denies dyspnea Musculoskeletal: Musculoskeletal: Reports no additional musculoskeletal complaints Integumentary/Breasts: Skin/Breast: Reports system reviewed and no additional complaints, except as docu PMFSH Past Medical History Medical History Bipolar disorder Genital herpes Fracture of right wrist COPD (chronic obstructive pulmonary disease) Asthma Surgical History Surgical History Previous section Social History Social History Smoking packs per day: 0.5 Smoking cigarettes per day: 10.0 Years smoked: 25 Smoking pack-years: 12.50 Smoking status: Current every day smoker Tobacco type: cigarettes Alcohol intake: unknown Substance use: unknown Gender identity (if verbalized by the patient): Female Comments At the time of my signature, I reviewed and agree with the nursing past medical, surgical, social, and family history. There is no relevant family history pertinent to the patient complaint. Exam 2 Const: General: cooperative, healthy appearing, comfortable, no acute distress, well developed, alert and well nourished Nutritional Appearance: w ell nourished Orientation/consciousness: patient oriented x3 Limitations: no limitations HENMT: Head: normal to inspection Ears: hearing grossly normal bilaterally, external ears normal, TM's normal bilaterally, EAC's normal, mastoids normal and no periauricular adenopathy Mouth: Yes Normal oral and palatal mucosa present, Yes lip normal, Yes tongue normal and Yes moist mucous membranes T eeth and gingiva: fair dentition Teeth image: 1. Fractured tooth, erythema, edema noted In surrounding gingiva Eyes: General: appearance normal, both eyes and all related structures A lignment and Position: alignment normal Neck: Neck: normal visual inspection, full ROM, no lymphadenopathy and no meningeal signs Chest: Chest palpation & inspection: normal inspection of the chest Resp: Effort & Inspection: normal respiratory effort and able to speak in complete sentences Auscultation: clear to auscultation bilaterally, no crackles, no rales, no rhonchi and no wheezes Cardio: Rate: regular rate Skin: General skin exam: normal color and no rashes or lesions noted Neuro: General: patient oriented x3, gait normal, moves all extremities and no meningeal signs Cognition (Neuro): normal cognition Speech: normal speech Gait exam (Neuro): Normal gait present Extrem: General: normal to inspection, full ROM, capillary refill normal and normal gait Psych: Appearance: grossly normal and well kempt Mental Status: mental status grossly normal Speech and movement: Normal speech and movement present and Clear speech present Affect: normal affect Attitude: cooperative Course Course Level of Care: Express Care Visit Vital Signs Vital signs: Vital Signs Temperature 97.8 F 12/23/24 15:06 Pulse Rate 87 12/23/24 15:06 Respiratory Rate 20 12/23/24 15:06 Blood Pressure 147/89 H 12/23/24 15:06 Pulse Oximetry 98 12/23/24 15:06 Oxygen Delivery Room Air 12/23/24 15:06 Temperature 97.8 F 12/23/24 15:06 Pulse Rate 87 12/23/24 15:06 Respiratory Rate 20 12/23/24 15:06 Blood Pressure 147/89 H 12/23/24 15:06 Pulse Oximetry 98 12/23/24 15:06 Oxygen Delivery Room Air 12/23/24 15:06 Reviewed MDM - Dental/Oral MDM Narrative Medical decision making narrative: patient sitting in exam room. Patient is nontoxic, vitals stable. today history of dental pain, swelling worse today. Patient is appropriate for outpatient treatment with close follow-up as an appointment to have the tooth removed on 03 January Discharge instructions reviewed with patient, as well as provided in writing per nursing staff. The instructions also include specific and strict return/GO TO THE ER as well as f/u information. All questions have been answered, and the patient deny any further questions with discharge and discharge plan. Some parts of this dictation were generated by voice recognition software and may contain typographical and/or grammatical inaccuracies. Differential Diagnosis Differential diagnosis: Likely gingival abscess, dental caries, toothache, dental abscess and fracture of tooth Critical Care Time Critical Care Time Critical Care Time: No Discharge Plan Discharge Clinical Impression: Toothache, Dental abscess Patient Disposition: Home Condition: Stable Instructions: Antibiotic Form, Dental Abscess (ED) Additional Instructions: Finish the entire course of antibiotics [place] teeth and use mouthwash twice daily After every time you eat be sure to use salt water rinses. Apply ice to face to help with pain. Take Tylenol alternating with Motrin as needed for pain. You can alternate every 4 hours You need to follow-up with a dental provider as soon as possible for further evaluation and treatment. Follow up with a Primary Care Provider (PCP) about medical needs. A PCP can help keep you healthy by preventive medicine and screening. Go to the ER for New or worsening symptoms. Patient Language: Cuban Prescriptions: New penicillin V potassium 500 mg tablet 500 mg PO QID 7 Days Qty: 28 0RF ibuprofen 800 mg tablet 800 mg PO TID PRN (Reason: pain) Qty: 30 0RF No Action fluticasone propion-salmeterol [Advair Diskus] 500-50 mcg/dose blister with device See Rx Instructions .ROUTE .COMPLEX Rx Instructions: as prescribed albuterol sulfate 90 mcg/actuation HFA aerosol inhaler 2 puff inhalation QID PRN (Reason: shortness of breath or wheezing) Qty: 8.5 0RF albuterol sulfate 2.5 mg /3 mL (0.083 %) solution for nebulization 2.5 mg inhalation Q4H PRN (Reason: shortness of breath or wheezing) Qty: 75 0RF albuterol sulfate 90 mcg/actuation HFA aerosol inhaler 2 puff inhalation QID PRN (Reason: shortness of breath or wheezing) Qty: 6.7 0RF Rx Instructions: blue one fluticasone propion-salmeterol [Advair Diskus] 500-50 mcg/dose blister with device 1 inh inhalation Q12H Qty: 60 0RF albuterol sulfate 2.5 mg /3 mL (0.083 %) solution for nebulization 2.5 mg inhalation Q4H Qty: 90 0RF Follow-up/Referrals: Deonte,Leonel Chiu MD [Primary Care Provider] - 1 Week Stand Alone Forms: Work/School Release IP Time of Disposition: 15:19
== END 2024-12-23 15:23 | disposition home or self-care (01) ==
PROVIDERS: Emergency Provider Nurse Practitioner; PCP Family Medicine
DX: K04.7 Periapical abscess without sinus (principal); J44.9 Chronic obstructive pulmonary disease, unspecified; F17.210 Nicotine dependence, cigarettes, uncomplicated
CPT/HCPCS: 99213; G0463